=== PATIENT | male | born 1960 | race Caucasian/White ===

== ENCOUNTER 2019-06-01 15:14 | Emergency (ER) | payer SELFPAY ==
--- OUTSIDE RECORDS SUMMARY | 2019-06-01 15:31 | XMS REPORT | Clinical Summary ---
Author Author ANGELA Globaltmail USASaint Alphons[facility] - [facility] NampaTeam-Match [facility] CenterCDPMulti[facility] Address Unknown Phone Unavailable Care Team Providers Care Funds Development Director Name Role Phone PCP Unavailable Allergies No Known Allergies Medications End Date Status Medication Sig Dispensed Refills Start Date Active metoprolol (LOPRESSOR) 50 Take 50 mg by 0 MG tablet mouth 2 (two) times daily. Active sertraline (ZOLOFT) 25 MG Take 25 mg by 0 tablet mouth daily. 07/03/2018 Discontinued aspirin 81 MG EC tablet Take 81 mg by 0 mouth daily. 07/03/2018 Discontinued rosuvastatin (CRESTOR) 20 Take 20 mg by 0 MG tablet mouth nightly. 07/29/2018 Discontinued amiodarone (PACERONE) 200 Take 1 tablet 60 tablet 0 MG tablet (200 mg 8 total) by mouth 2 (two) times daily for 30 days. 07/10/2018 amoxicillin-clavulanate Take 1 tablet 14 tablet 0 (AUGMENTIN) 875-125 mg by mouth 8 per tablet every 12 (twelve) hours for 7 days. 08/02/2018 aspirin 325 MG tablet Take 1 tablet 30 tablet 0 (325 mg 8 total) by mouth daily for 30 days. 08/02/2018 atorvastatin (LIPITOR) 20 Take 1 tablet 30 tablet 0 MG tablet (20 mg total) 8 by mouth daily for 30 days. 08/02/2018 clopidogrel (PLAVIX) 75 Take 1 tablet 30 tablet 0 mg tablet (75 mg total) 8 by mouth daily for 30 days. 08/02/2018 gabapentin (NEURONTIN) Take 1 90 capsule 0 100 MG capsule capsule (100 8 mg total) by mouth 3 (three) times daily for 30 days. 07/08/2018 predniSONE (DELTASONE) 20 Take 2 10 tablet 0 MG tablet tablets (40 8 mg total) by mouth daily for 5 days. 08/02/2018 famotidine (PEPCID) 20 MG Take 1 tablet 60 tablet 0 tablet (20 mg total) 8 by mouth 2 (two) times daily for 30 days. Active Problems Problem Noted Date S/P CABG (coronary artery bypass graft) 06/24/2018 CAD (coronary artery disease), [place] coronary artery 06/24/2018 Encounters Care Team Description Date Type Specialty Tiffany Hanley, MARIAA 10/09/2018 Telephone Blanca Hong, RN 10/01/2018 Telephone Physical Therapy Blanca Hong, MARIAA 09/24/2018 Telephone Physical Therapy Blanca Hong, RN 09/23/2018 Telephone Physical Therapy Bernabe Maharaj MD Hansen, Kristine M, RN S/P CABG x 2 (Primary Dx) 09/22/2018 Office Visit Physical Therapy Bernabe Maharaj MD Hansen, Kristine M, RN S/P CABG x 2 (Primary Dx) 09/21/2018 Office Visit Physical Therapy Tiffany Hanley, MARIAA 09/17/2018 Telephone Blanca Hong, RN 09/15/2018 Telephone Physical Therapy Blanca Hong, RN 09/14/2018 Telephone Physical Therapy Blanca Hong, RN 09/10/2018 Telephone Physical Therapy Bernabe Maharaj MD Hansen, Kristine M, RN S/P CABG x 2 (Primary Dx) 09/08/2018 Office Visit Physical Therapy Bernabe Maharaj MD Hansen, Kristine M, RN S/P CABG x 2 (Primary Dx) 09/07/2018 Office Visit Physical Therapy Bernabe Maharaj MD Hansen, Kristine M, RN S/P CABG x 2 (Primary Dx) 08/31/2018 Office Visit Physical Therapy Bernabe Maharaj MD Hansen, Kristine M, RN S/P CABG x 2 (Primary Dx) 08/24/2018 Office Visit Physical Therapy Blanca Hong, RN 08/20/2018 Telephone Physical Therapy Bernabe Maharaj MD Burns, Caitlin M S/P CABG x 2 (Primary Dx) 08/18/2018 Office Visit Physical Therapy Bernabe Maharaj MD Hansen, Kristine M, RN S/P CABG x 2 (Primary Dx) 08/18/2018 Office Visit Physical Therapy Bernabe Maharaj MD Hansen, Kristine M, RN S/P CABG x 2 (Primary Dx) 08/17/2018 Office Visit Physical Therapy Bernabe Maharaj MD Hansen, Kristine M, RN S/P CABG x 2 (Primary Dx) 08/13/2018 Office Visit Physical Therapy Bernabe Maharaj MD Hansen, Kristine M, RN S/P CABG x 2 (Primary Dx) 08/11/2018 Office Visit Physical Therapy Bernabe Maharaj MD Hansen, Kristine M, RN S/P CABG x 2 (Primary Dx) 08/10/2018 Office Visit Physical Therapy Blanca Hong, MARIAA 08/06/2018 Telephone Physical Therapy Bernabe Maharaj MD Hansen, Kristine M, RN S/P CABG x 2 (Primary Dx) 08/04/2018 Office Visit Physical Therapy Bernabe Maharaj MD Hansen, Kristine M, RN S/P CABG x 2 (Primary Dx) 08/03/2018 Office Visit Physical Therapy Bernabe Maharaj MD Hansen, Kristine M, RN S/P CABG x 2 (Primary Dx) 07/30/2018 Office Visit Physical Therapy Bernabe Maharaj MD Jacobs, Emily S/P CABG x 2 (Primary Dx) 07/29/2018 Office Visit Physical Therapy Bernabe Maharaj MD Mikelonis, Nicole Rene, RN S/P CABG x 2 (Primary Dx) 07/29/2018 Office Visit Physical Therapy Jackson Brambila MD BYPASS,AORTO CORONARY RANDI/SVG 06/24/2018 Surgery Abel Mota MD 06/24/2018 Anesthesia Event Jackson Brambila MD Bajoyo, Aries Palmejar, MD Kasmai, Haniyeh, MD Ruiz, Heine, MD Coronary artery disease involving [place] coronary artery of [place] heart without angina pectoris; S/P CABG (coronary artery bypass graft); Paroxysmal A-fib (HCC); Shortness of breath; Stridor 06/24/2018 [facility] General Internal Medicine - Encounter 07/03/2018 Jackson Brambila MD 06/23/2018 Hospital Pre-Admission Testing Encounter 06/23/2018 Orders Only General Internal Medicine after 05/31/2018 Family History Medical History Relation Name Comments No Known Problem Brother No Known Problem Father No Known Problem Mother No Known Problem Sister Relation Name Status Comments Brother Father Mother Sister Social History Date Tobacco Use Types Packs/Day Years Used Never Smoker Smokeless Tobacco: Never Used Alcohol Use Drinks/Week oz/Week Comments Yes 1 Glasses of 0.6 wine Sex Assigned at Date Recorded Not on file Industry Job Start Date Occupation Not on file Not on file Not on file Travel End Travel History Travel Start No recent travel history available. Last Filed Vital Signs Time Taken Vital Sign Reading 07/29/2018 11:02 AM CDT Blood Pressure 90/56 07/29/2018 11:02 AM CDT Pulse 75 07/03/2018 7:08 AM CDT Temperature 36.6 C (97.9 F) 07/03/2018 7:59 AM CDT Respiratory Rate 19 07/29/2018 11:02 AM CDT Oxygen Saturation 96% 07/01/2018 11:42 PM CDT Inhaled Oxygen 35% Concentration 07/29/2018 11:02 AM CDT Weight 91.2 kg (201 lb) 07/29/2018 11:02 AM CDT Height 170.2 cm (5' 7") 07/29/2018 11:02 AM CDT Body Mass Index 31.48 Plan of Treatment Health Maintenance Due Date Last Done Comments INFLUENZA VACCINE 07/06/2018 Implants Device Identifier Shelf Expiration Date Model / Serial / Lot Implanted Type Area Manufactur er 10/05/20202 / / [id number] Spng Surgcel 2x4in Lf Strl 1961 - Cement/Eren N/A: Chest BIOMET:TRA [id number] ler/Adhesi GABBY Implanted: Qty: 1 on 06/24/2018 by Jackson Oconnell MD 06/05/2019 [id number] / / [id number] Pericard Closure 4ply 7x15cm Tissue CORMATRIX [id number] - [id number] Graft/Subs CARDIOVASC Implanted: Qty: 1 on 06/24/2018 by Jackson Deng MD Procedures Comments Procedure Name Priority Date/Time Associated Diagnosis RHYTHM STRIP - SCAN 07/04/2018 4:32 PM CDT RHYTHM STRIP - SCAN 07/04/2018 4:31 PM CDT MAGNESIUM Routine 07/03/2018 4:[address] CHEST WITHOUT IV YARI 07/02/2018 CONTRAST 5:45 PM CDT PERIPHERAL VASCULAR 07/02/2018 REPORT - SCAN 8:42 AM CDT MAGNESIUM Routine 07/02/2018 5:48 AM CDT MAGNESIUM Routine 07/01/2018 4:[address] SOFT TISSUE NECK WITH YARI 06/30/2018 IV CONTRAST 5:45 PM CDT VENOUS DOPPLER ARM, LEFT Routine 06/30/2018 3:35 PM CDT MAGNESIUM Routine 06/30/2018 5:20 AM CDT BASIC METABOLIC PANEL (7) Routine 06/30/2018 5:20 AM CDT XR CHEST 1 VIEW Routine 06/29/2018 PORTABLE/BEDSIDE 5:00 AM CDT POCT-GLUCOSE METER Routine 06/29/2018 2:56 AM CDT POCT-GLUCOSE METER Routine 06/28/2018 8:43 PM CDT POCT-GLUCOSE METER Routine 06/28/2018 4:14 PM CDT BLOOD GAS, ARTERIAL Routine 06/28/2018 3:06 PM CDT XR CHEST 1 VIEW Routine 06/28/2018 PORTABLE/BEDSIDE 3:00 PM CDT POCT-GLUCOSE METER Routine 06/28/2018 2:54 PM CDT POCT-GLUCOSE METER Routine 06/28/2018 11:31 AM CDT POCT-GLUCOSE METER Routine 06/28/2018 5:03 AM CDT CBC W/PLT COUNT & AUTO Routine 06/28/2018 DIFFERENTIAL 3:26 AM CDT COMPREHENSIVE METABOLIC Routine 06/28/2018 PANEL 3:26 AM CDT CBC W/PLT COUNT & AUTO Routine 06/28/2018 DIFFERENTIAL 3:26 AM CDT MAGNESIUM Routine 06/28/2018 3:00 AM CDT POCT-GLUCOSE METER Routine 06/27/2018 8:35 PM CDT POCT-GLUCOSE METER Routine 06/27/2018 4:06 PM CDT POCT-GLUCOSE METER Routine 06/27/2018 10:58 AM CDT ECG 12-LEAD Routine 06/27/2018 9:37 AM CDT Procedure Note - Interface, External Ris In - 06/27/2018 9:44 AM CDT Ventricula r Rate 144 BPM Atrial Rate 141 BPM QRS Duration 88 ms Q-T Interval 318 ms QTC Calculatio n(Bazett) 492 ms R Webb 11 degrees T Webb 29 degrees Atrial fibrillati on with rapid ventricula r response Nonspecifi c ST and T wave abnormalit y , probably digitalis effect Abnormal ECG When compared with ECG of 8 17:41, PREVIOUS ECG IS PRESENT ECG 12-LEAD Routine 06/27/2018 9:37 AM CDT POCT-GLUCOSE METER Routine 06/27/2018 3:48 AM CDT POCT-GLUCOSE METER Routine 06/26/2018 7:47 PM CDT ECG 12-LEAD Routine 06/26/2018 5:41 PM CDT Procedure Note - Interface, External Ris In - 06/26/2018 5:48 PM CDT Ventricula r Rate 100 BPM Atrial Rate 100 BPM P-R Interval 126 ms QRS Duration 90 ms Q-T Interval 344 ms QTC Calculatio n(Bazett) 443 ms P Webb 77 degrees R Webb 25 degrees T Webb 25 degrees Normal sinus rhythm ST elevation consider inferolate ral injury or acute infarct * ACUTE VT Abnormal ECG When compared with ECG of 8 15:13, PREVIOUS ECG IS PRESENT POCT-GLUCOSE METER Routine 06/26/2018 4:00 PM CDT CBC W/PLT COUNT & AUTO Routine 06/26/2018 DIFFERENTIAL 4:24 AM CDT BLOOD GAS, ARTERIAL Routine 06/26/2018 4:24 AM CDT CALCIUM, IONIZED Routine 06/26/2018 4:24 AM CDT MAGNESIUM Routine 06/26/2018 4:24 AM CDT BASIC METABOLIC PANEL (7) Routine 06/26/2018 4:24 AM CDT CBC W/PLT COUNT & AUTO Routine 06/26/2018 DIFFERENTIAL 4:24 AM CDT XR CHEST 1 VIEW Routine 06/26/2018 PORTABLE/BEDSIDE 2:36 AM CDT POCT-GLUCOSE METER Routine 06/26/2018 12:08 AM CDT POCT-GLUCOSE METER Routine 06/25/2018 8:24 PM CDT POCT-GLUCOSE METER Routine 06/25/2018 6:26 PM CDT TRANSFUSION SERVICE 06/25/2018 REPORT - SCAN 5:56 PM CDT BLOOD GAS, ARTERIAL Routine 06/25/2018 5:55 PM CDT BLOOD GAS, ARTERIAL Routine 06/25/2018 12:35 PM CDT POCT-GLUCOSE METER Routine 06/25/2018 6:09 AM CDT CBC W/PLT COUNT & AUTO Routine 06/25/2018 DIFFERENTIAL 5:19 AM CDT MAGNESIUM Routine 06/25/2018 5:19 AM CDT CBC W/PLT COUNT & AUTO Routine 06/25/2018 DIFFERENTIAL 5:19 AM CDT BASIC METABOLIC PANEL (7) Routine 06/25/2018 5:19 AM CDT XR CHEST 1 VIEW Routine 06/25/2018 PORTABLE/BEDSIDE 2:31 AM CDT POCT-GLUCOSE METER Routine 06/25/2018 12:25 AM CDT BLOOD GAS, ARTERIAL YARI 06/24/2018 10:48 PM CDT POCT-GLUCOSE METER Routine 06/24/2018 8:36 PM CDT MAGNESIUM Add-On 06/24/2018 7:22 PM CDT BASIC METABOLIC PANEL (7) Add-On 06/24/2018 7:22 PM CDT POCT-GLUCOSE METER Routine 06/24/2018 6:52 PM CDT TRANSFUSION SERVICE 06/24/2018 REPORT - SCAN 5:57 PM CDT CBC W/PLT COUNT & AUTO Routine 06/24/2018 DIFFERENTIAL 5:13 PM CDT CALCIUM, IONIZED Routine 06/24/2018 5:13 PM CDT BLOOD GAS, ARTERIAL Routine 06/24/2018 5:13 PM CDT PT/APTT Routine 06/24/2018 5:13 PM CDT CBC W/PLT COUNT & AUTO Routine 06/24/2018 DIFFERENTIAL 5:13 PM CDT POCT-GLUCOSE METER Routine 06/24/2018 5:12 PM CDT PREPARE LEUKO-REDUCED RBC Routine 06/24/2018 4:18 PM CDT POCT-GLUCOSE METER Routine 06/24/2018 3:37 PM CDT XR CHEST 1 VIEW Routine 06/24/2018 PORTABLE/BEDSIDE 3:15 PM CDT ECG 12-LEAD Routine 06/24/2018 3:13 PM CDT Procedure Note - Interface, External Ris In - 06/24/2018 3:17 PM CDT Ventricula r Rate 69 BPM Atrial Rate 69 BPM P-R Interval 136 ms QRS Duration 128 ms Q-T Interval 438 ms QTC Calculatio n(Bazett) 469 ms P Webb 66 degrees R Webb 5 degrees T Webb 14 degrees Normal sinus rhythm Right bundle branch block Abnormal ECG When compared with ECG of 8 08:27, PREVIOUS ECG IS PRESENT ECG 12-LEAD STAT 06/24/2018 3:13 PM CDT CBC W/PLT COUNT & AUTO Routine 06/24/2018 DIFFERENTIAL 3:05 PM CDT CALCIUM, IONIZED Routine 06/24/2018 3:05 PM CDT PT/APTT Routine 06/24/2018 3:05 PM CDT PROTHROMBIN TIME/INR Routine 06/24/2018 3:05 PM CDT BLOOD GAS, ARTERIAL Routine 06/24/2018 3:05 PM CDT MAGNESIUM Routine 06/24/2018 3:05 PM CDT BASIC METABOLIC PANEL (7) Routine 06/24/2018 3:05 PM CDT CBC W/PLT COUNT & AUTO Routine 06/24/2018 DIFFERENTIAL 3:05 PM CDT SPUTUM CULTURE + GRAM Routine 06/24/2018 STAIN 3:05 PM CDT POCT-HEMOGLOBIN Routine 06/24/2018 2:47 PM CDT POCT-HEMATOCRIT Routine 06/24/2018 2:47 PM CDT POCT-CALCIUM IONIZED Routine 06/24/2018 2:47 PM CDT POCT-GLUCOSE Routine 06/24/2018 2:47 PM CDT POCT-POTASSIUM Routine 06/24/2018 2:47 PM CDT POCT-SODIUM Routine 06/24/2018 2:47 PM CDT POCT-BLOOD GASES, Routine 06/24/2018 ARTERIAL 2:47 PM CDT POCT-ACT Routine 06/24/2018 2:46 PM CDT POCT-HEMOGLOBIN Routine 06/24/2018 1:36 PM CDT POCT-HEMATOCRIT Routine 06/24/2018 1:36 PM CDT POCT-CALCIUM IONIZED Routine 06/24/2018 1:36 PM CDT POCT-GLUCOSE Routine 06/24/2018 1:36 PM CDT POCT-POTASSIUM Routine 06/24/2018 1:36 PM CDT POCT-SODIUM Routine 06/24/2018 1:36 PM CDT POCT-BLOOD GASES, Routine 06/24/2018 ARTERIAL 1:36 PM CDT POCT-ACT Routine 06/24/2018 1:35 PM CDT POCT-HEMOGLOBIN Routine 06/24/2018 12:59 PM CDT POCT-HEMATOCRIT Routine 06/24/2018 12:59 PM CDT POCT-CALCIUM IONIZED Routine 06/24/2018 12:59 PM CDT POCT-GLUCOSE Routine 06/24/2018 12:59 PM CDT POCT-POTASSIUM Routine 06/24/2018 12:59 PM CDT POCT-SODIUM Routine 06/24/2018 12:59 PM CDT POCT-BLOOD GASES, Routine 06/24/2018 ARTERIAL 12:59 PM CDT POCT-ACT Routine 06/24/2018 12:58 PM CDT POCT-ACT Routine 06/24/2018 12:30 PM CDT POCT-ACT Routine 06/24/2018 12:04 PM CDT POCT-HEMOGLOBIN Routine 06/24/2018 11:37 AM CDT POCT-HEMATOCRIT Routine 06/24/2018 11:37 AM CDT POCT-CALCIUM IONIZED Routine 06/24/2018 11:37 AM CDT POCT-GLUCOSE Routine 06/24/2018 11:37 AM CDT POCT-POTASSIUM Routine 06/24/2018 11:37 AM CDT POCT-SODIUM Routine 06/24/2018 11:37 AM CDT POCT-BLOOD GASES, Routine 06/24/2018 ARTERIAL 11:37 AM CDT POCT-ACT Routine 06/24/2018 11:36 AM CDT BYPASS,AORTO CORONARY 06/24/2018 Atherosclerosis of [place] RANDI/SVG 11:10 AM CDT coronary artery of [place] heart without angina pectoris Case Notes CABG Special Needs PERFUSION - NOTIFIED 06/19 LM CONFIRM#PL ATELET GEL - NOTIFIED 06/19 LM XR CHEST 2 VIEWS Routine 06/23/2018 8:39 AM CDT ECG 12-LEAD Routine 06/23/2018 8:27 AM CDT Procedure Note - Interface, External Ris In - 06/23/2018 8:14 AM CDT Ventricula r Rate 53 BPM Atrial Rate 53 BPM P-R Interval 136 ms QRS Duration 90 ms Q-T Interval 420 ms QTC Calculatio n(Bazett) 394 ms P Webb 48 degrees R Webb 31 degrees T Webb 38 degrees Sinus bradycardi a Otherwise normal ECG No previous ECGs available ECG 12-LEAD Routine 06/23/2018 8:27 AM CDT CBC W/PLT COUNT & AUTO Routine 06/23/2018 DIFFERENTIAL 8:06 AM CDT TYPE AND SCREEN, Routine 06/23/2018 AUTOMATED 8:06 AM CDT URINALYSIS W/ MICROSCOPIC Routine 06/23/2018 8:06 AM CDT HEMOGLOBIN A1C Routine 06/23/2018 8:06 AM CDT LIPID PANEL Routine 06/23/2018 8:06 AM CDT PT/APTT Routine 06/23/2018 8:06 AM CDT BASIC METABOLIC PANEL (7) Routine 06/23/2018 8:06 AM CDT CBC W/PLT COUNT & AUTO Routine 06/23/2018 DIFFERENTIAL 8:06 AM CDT after 05/31/2018 Results * RHYTHM STRIP - SCAN (07/04/2018 4:32 PM CDT) Only the most recent of 2 results within the time period is included. Narrative Performed At * Magnesium (07/03/2018 4:27 AM CDT) Only the most recent of 9 results within the time period is included. Magnesium 2.3 1.5 - 3.0 mg/dL [facility] Specimen Blood Performing Organization Address City/State/Zipcode Phone Number [facility] [id number] [place] [address] * CT chest without IV contrast (07/02/2018 5:45 PM CDT) Specimen Narrative Performed At FINAL REPORT [facility] HISTORY: stridor COMPARISON : None Technique : Multiple axial images of the chest were performed from the lung apices to the lung bases without the administration of IV contrast. Images were presented in both the lung and soft tissue windows. This exam was performed according to our departmental dose optimization program which includes automated exposure control, adjustment of the mA and/or kV according to patient size and/or use of iterative reconstructive technique. Comment: The thyroid gland is within normal limits. There is no hilar, mediastinal or axillary lymphadenopathy. The patient is status post sternotomy. There is some pneumomediastinum. Some postsurgical changes including some wire is seen in the pericardial region of unclear etiology/significance. There is some pericardial thickening. Some nonspecific material is seen in the proximal trachea at the neck region. Please refer to the neck CT for further information. The visualized portions of the liver, spleen, adrenal glands, pancreas, and kidneys are within normal limits. The osseous structures as well as the subcutaneous soft tissues are without any abnormalities. There are some scattered areas of some linear subsegmental atelectasis versus scarring in the lungs. There is a very small left-sided pleural effusion with some adjacent airspace disease that likely represents atelectasis. Impression: 1. Very small left-sided pleural effusion with some adjacent likely atelectasis. 2. Scattered areas of some linear subsegmental atelectasis versus scarring. 3. Pneumomediastinum. 4. Nonspecific material/density in the proximal trachea. Please refer to the neck CT for further information. Signed: Wang Kirkland MD Report Verified Date/Time:07/02/2018 17:59:40 Reading Location: [address] Body Reading Room Procedure Note Interface, External Ris In - 07/02/2018 6:01 PM CDT FINAL REPORT HISTORY: stridor COMPARISON : None Technique : Multiple axial images of the chest were performed from the lung apices to the lung bases without the administration of IV contrast. Images were presented in both the lung and soft tissue windows. This exam was performed according to our departmental dose optimization program which includes automated exposure control, adjustment of the mA and/or kV according to patient size and/or use of iterative reconstructive technique. Comment: The thyroid gland is within normal limits. There is no hilar, mediastinal or axillary lymphadenopathy. The patient is status post sternotomy. There is some pneumomediastinum. Some postsurgical changes including some wire is seen in the pericardial region of unclear etiology/significance. There is some pericardial thickening. Some nonspecific material is seen in the proximal trachea at the neck region. Please refer to the neck CT for further information. The visualized portions of the liver, spleen, adrenal glands, pancreas, and kidneys are within normal limits. The osseous structures as well as the subcutaneous soft tissues are without any abnormalities. There are some scattered areas of some linear subsegmental atelectasis versus scarring in the lungs. There is a very small left-sided pleural effusion with some adjacent airspace disease that likely represents atelectasis. Impression: 1. Very small left-sided pleural effusion with some adjacent likely atelectasis. 2. Scattered areas of some linear subsegmental atelectasis versus scarring. 3. Pneumomediastinum. 4. Nonspecific material/density in the proximal trachea. Please refer to the neck CT for further information. Signed: Wang Kirkland MD Report Verified Date/Time: 07/02/2018 17:59:40 Reading Location: [facility] B1 [id number] CT Body Reading Room Performing Organization Address City/State/Zipcode Phone Number [place] * PERIPHERAL VASCULAR REPORT - SCAN (07/02/2018 8:42 AM CDT) Narrative Performed At * CT neck soft tissue with IV contrast (06/30/2018 5:45 PM CDT) Specimen Narrative Performed At FINAL REPORT [place] CT neck with contrast 06/30/2018 6:02 PM CLINICAL HISTORY: Persistent Stridor TECHNIQUE: Axial contrast-enhanced CT images of the neck were obtained. Axially acquired data were reformatted in coronal and sagittal planes for further analysis. This examination was performed according to our departmental dose optimization program, which includes automated exposure control, adjustment of the mA and/or kV according to patient size, and/or use of iterated reconstruction technique. COMPARISON: None available FINDINGS: There is circumferential nonenhancing debris in the proximal trachea, extending from the midportion of the cricoid cartilage inferiorly to the level of the C7-T1 intervertebral disc space. There is a poorly delineated collection in the immediately adjacent posterolateral right paratracheal soft tissue at C7, potentially reflecting a diverticulum or consequence of prior instrumentation. There is no mass or abnormal enhancement in the remainder aerodigestive tract or surrounding soft tissue. There is no lymphadenopathy. There are no fluid collections. The salivary and thyroid glands are unremarkable. The visualized brain, orbits, and paranasal sinuses are without worrisome finding. There are mild degenerative changes in the cervical spine without high-grade foraminal or central canal stenosis. There are changes of median sternotomy. IMPRESSION: Incompletely characterized intraluminal and periluminal proximal tracheal lesion, for which direct visualization is recommended. Signed: Stevie Kathleen MD Report Verified Date/Time:06/30/2018 18:07:11 Reading Location: [facility] Radiology Reading Room Procedure Note Interface, External Ris In - 06/30/2018 6:09 PM CDT FINAL REPORT CT neck with contrast 06/30/2018 6:02 PM CLINICAL HISTORY: Persistent Stridor TECHNIQUE: Axial contrast-enhanced CT images of the neck were obtained. Axially acquired data were reformatted in coronal and sagittal planes for further analysis. This examination was performed according to our departmental dose optimization program, which includes automated exposure control, adjustment of the mA and/or kV according to patient size, and/or use of iterated reconstruction technique. COMPARISON: None available FINDINGS: There is circumferential nonenhancing debris in the proximal trachea, extending from the midportion of the cricoid cartilage inferiorly to the level of the C7-T1 intervertebral disc space. There is a poorly delineated collection in the immediately adjacent posterolateral right paratracheal soft tissue at C7, potentially reflecting a diverticulum or consequence of prior instrumentation. There is no mass or abnormal enhancement in the remainder aerodigestive tract or surrounding soft tissue. There is no lymphadenopathy. There are no fluid collections. The salivary and thyroid glands are unremarkable. The visualized brain, orbits, and paranasal sinuses are without worrisome finding. There are mild degenerative changes in the cervical spine without high-grade foraminal or central canal stenosis. There are changes of median sternotomy. IMPRESSION: Incompletely characterized intraluminal and periluminal proximal tracheal lesion, for which direct visualization is recommended. Signed: Stevie Kathleen MD Report Verified Date/Time: 06/30/2018 18:07:11 Reading Location: [facility] Radiology Reading Room Performing Organization Address City/State/Zipcode Phone Number [facility] * Venous doppler arm, left (06/30/2018 3:35 PM CDT) Specimen Narrative Performed At FINAL REPORT [place] Left upper extremity venous Doppler dated 06/30/2018 HISTORY: Left arm swelling COMPARISON: None. Findings: There is occlusive thrombus seen in the cephalic vein and distal basilic vein. The radial, ulnar, brachial, axillary, subclavian, and internal jugular veins are patent without filling defect. There is otherwise normal compressibility and augmentation in the veins of the left upper extremity. IMPRESSION: 1. No deep venous thrombosis. 2. Occlusive thrombus in the cephalic and basilic veins as above. Signed: Jose Darden MD Report Verified Date/Time:06/30/2018 15:49:03 Reading Location: [facility] Radiology Reading Room Procedure Note Interface, External Ris In - 06/30/2018 3:51 PM CDT FINAL REPORT Left upper extremity venous Doppler dated 06/30/2018 HISTORY: Left arm swelling COMPARISON: None. Findings: There is occlusive thrombus seen in the cephalic vein and distal basilic vein. The radial, ulnar, brachial, axillary, subclavian, and internal jugular veins are patent without filling defect. There is otherwise normal compressibility and augmentation in the veins of the left upper extremity. IMPRESSION: 1. No deep venous thrombosis. 2. Occlusive thrombus in the cephalic and basilic veins as above. Signed: Jose Darden MD Report Verified Date/Time: 06/30/2018 15:49:03 Reading Location: [facility] Radiology Reading Room Performing Organization Address City/State/Zipcode Phone Number [facility] * Basic Metabolic Panel (06/30/2018 5:20 AM CDT) Only the most recent of 6 results within the time period is included. Sodium 138 135 - 148 meq/L [facility] Potassium 3.6 3.5 - 5.5 meq/L [facility] Chloride 104 98 - 106 meq/L [facility] CO2 25 20 - 31 meq/L [facility] BUN 12 10 - 26 mg/dL [facility] Creatinine 0.73 0.50 - 1.20 mg/dL [facility] Glucose 87 70 - 110 mg/dL [facility] Calcium 8.8 8.5 - 10.5 mg/dL [facility] EGFR 110Comment: ESTIMATED GFR IS mL/min/1.73 sq m [facility] NOT ACCURATE CREATININE CLEARANCE IN PREDICTING GLOMERULAR FILTRATION RATE. ESTIMATED GFR IS NOT APPLICABLE FOR DIALYSIS PATIENTS. Specimen Blood Performing Organization Address City/State/Zipcode Phone Number [facility] [address] [place] [address] * XR chest 1 view portable / bedside (06/29/2018 5:00 AM CDT) Only the most recent of 5 results within the time period is included. Specimen Narrative Performed At FINAL REPORT [facility] RAD, CHEST, 1 VIEW, NON DEPT INDICATION: SOB COMPARISON: Prior day's exam FINDINGS: Portable frontal view of the chest. IMPRESSION: Support Lines: Multiple surgical drains are stable. Lungs and pleura: Basilar subsegmental atelectasis. No new consolidation. No pneumothorax. Heart and mediastinum: Stable contours. Stable surgical changes. Additional findings: None. Signed: JR Saunders Robert MD Report Verified Date/Time:06/29/2018 05:15:41 Reading Location: [address] Transitional Reading Room Procedure Note Interface, External Ris In - 06/29/2018 6:37 AM CDT FINAL REPORT RAD, CHEST, 1 VIEW, NON DEPT INDICATION: SOB COMPARISON: Prior day's exam FINDINGS: Portable frontal view of the chest. IMPRESSION: Support Lines: Multiple surgical drains are stable. Lungs and pleura: Basilar subsegmental atelectasis. No new consolidation. No pneumothorax. Heart and mediastinum: Stable contours. Stable surgical changes. Additional findings: None. Signed: JR Saunders Robert MD Report Verified Date/Time: 06/29/2018 05:15:41 Reading Location: [facility] Transitional Reading Room Performing Organization Address City/State/Zipcode Phone Number [facility] * POC-Glucose meter (06/29/2018 2:56 AM CDT) Only the most recent of 21 results within the time period is included. POC-Glucose Meter 111 (H)Comment: TESTED AT [facility] 70 - 110 mg/dL [facility] [address] [facility] [address] Specimen Blood Performing Organization Address City/State/Zipcode Phone Number [facility] [address] [place] [address] [facility] * Blood gas, arterial (06/28/2018 3:06 PM CDT) Only the most recent of 7 results within the time period is included. pH, Arterial 7.45 7.35 - 7.45 [facility] pCO2, Arterial 39 35 - 45 mmHg [facility] pO2, Arterial 147 (H) 80 - 90 mmHg [facility] O2 Sat, Arterial 99.0 (H) 96.0 - 97.0 % [facility] HCO3, Arterial 26 21 - 29 mmol/L [facility] Base Excess, Arterial 2.1 -2.0 - 3.0 mmol/L [facility] Patient Temperature 37.0 C [facility] FIO2 40.0 % [facility] Specimen Blood, Arterial Performing Organization Address City/[facility]/Zipcode Phone Number [facility] [address] [place] [address] * CBC with platelet count + automated diff (06/28/2018 3:26 AM CDT) Only the most recent of 6 results within the time period is included. WBC 9.4 4.0 - 10.0 K/L [facility] RBC 3.08 (L) 4.20 - 5.80 M/L [facility] Hemoglobin 9.5 (L) 13.0 - 16.8 GM/DL [facility] Hematocrit 29.0 (L) 36.0 - 50.0 % [facility] MCV 94.2 82.0 - 99.0 fL [facility] MCH 30.8 27.0 - 33.0 pg [facility] MCHC 32.8 32.0 - 36.0 GM/DL [facility] RDW 13.2 12.0 - 15.0 % [facility] Platelets 168 150 - 430 K/CU MM [facility] MPV 10.8Comment: MPV-Approximately 6.0 - 11.5 fL [facility] 20% positive bias due to method change. nRBC 0 0 - 0 /100 WBC [facility] % Neutros 74 % [facility] % Lymphs 15 % [facility] % Monos 10 % [facility] % Eos 0 % [facility] % Baso 0 % [facility] # Neutros 6.93 1.80 - 8.00 K/L [facility] # Lymphs 1.44 (L) 1.48 - 4.50 K/L [facility] # Monos 0.91 0.00 - 1.30 K/L [facility] # Eos 0.03 0.00 - 0.50 K/L [facility] # Baso 0.04 0.00 - 0.20 K/L [facility] Immature 1 (H) 0 - 0 % [facility] Granulocytes-Relative Specimen Blood Performing Organization Address [facility] Phone Number [facility] [address] [place] [address] * Comprehensive metabolic panel (06/28/2018 3:26 AM CDT) Protein, Total 6.0 6.0 - 8.5 gm/dL [facility] Albumin 3.5 3.5 - 5.0 g/dL [facility] Alkaline Phosphatase 57 30 - 115 U/L [facility] Total Bilirubin 1.0 0.1 - 1.3 mg/dL [facility] Sodium 135 135 - 148 meq/L [facility] Potassium 4.4 3.5 - 5.5 meq/L [facility] Chloride 104 98 - 106 meq/L [facility] CO2 21 20 - 31 meq/L [facility] BUN 19 10 - 26 mg/dL [facility] Creatinine 0.80 0.50 - 1.20 mg/dL [facility] Glucose 122 (H) 70 - 110 mg/dL [facility] Calcium 8.8 8.5 - 10.5 mg/dL [facility] AST 197 (H) 5 - 40 U/L [facility] ALT 203 (H) 6 - 50 U/L [facility] EGFR 99Comment: ESTIMATED GFR IS mL/min/1.73 sq m [facility] NOT ACCURATE CREATININE CLEARANCE IN PREDICTING GLOMERULAR FILTRATION RATE. ESTIMATED GFR IS NOT APPLICABLE FOR DIALYSIS PATIENTS. Specimen Blood Performing Organization Address [facility] Phone Number [facility] [address] [place] [address] * ECG 12 lead (06/27/2018 9:37 AM CDT) Only the most recent of 3 results within the time period is included. Specimen Narrative Performed At Ventricular Rate 144 BPM GE MUSE Atrial Rate 141 BPM QRS Duration 88 ms Q-T Interval 318 ms QTC Calculation(Bazett) 492 ms R Webb 11 degrees T Webb 29 degrees Atrial fibrillation with rapid ventricular response Nonspecific ST and T wave abnormality , probably digitalis effect Abnormal ECG When compared with ECG of 26-JUN-2018 17:41, PREVIOUS ECG IS PRESENT Procedure Note Interface, External Ris In - 06/29/2018 3:12 PM CDT Ventricular Rate 144 BPM Atrial Rate 141 BPM QRS Duration 88 ms Q-T Interval 318 ms QTC Calculation(Bazett) 492 ms R Webb 11 degrees T Webb 29 degrees Atrial fibrillation with rapid ventricular response Nonspecific ST and T wave abnormality , probably digitalis effect Abnormal ECG When compared with ECG of 26-JUN-2018 17:41, PREVIOUS ECG IS PRESENT Performing Organization Address City/State/[facility] Phone Number [employer] [facility] * Calcium, Ionized (06/26/2018 4:24 AM CDT) Only the most recent of 3 results within the time period is included. Calcium, Ion 1.01 (L) 1.12 - 1.27 mmol/L [facility] pH, Blood 7.40 [facility] Specimen Blood Performing Organization Address City/[facility]/Zipcode Phone Number [facility] [address] [place] [address] * TRANSFUSION SERVICE REPORT - SCAN (06/25/2018 5:56 PM CDT) Only the most recent of 2 results within the time period is included. Narrative Performed At * PT/aPTT (06/24/2018 5:13 PM CDT) Only the most recent of 3 results within the time period is included. Protime 18.4 (H) 11.8 - 14.4 seconds [facility] INR 1.5 1.2 - 1.5 [facility] PTT 26.3 23.2 - 36.1 seconds [facility] Specimen Blood Narrative Performed At RECOMMENDED COUMADIN/WARFARIN INR THERAPY RANGES [facility] STANDARD DOSE: 2.0 - 3.0 Includes: PROPHYLAXIS for venous thrombosis, systemic embolization; TREATMENT for venous thrombosis and/or pulmonary embolus. HIGH RISK: Target INR is 2.5-3.5 for patients with mechanical heart valves. Performing Organization Address [facility] Hospital[facility] Phone Number [facility] [address] [place] [address] * Prepare Leuko-Red RBC (06/24/2018 4:18 PM CDT) CROSSMATCH COMPATIBLE SAFETRACE TX Unit ABO A Neg [facility]ET[facility] TX UNIT NUMBER [id number] [facility] TX Status RETURNED FROM ISSUE [facility]ET[facility] TX Blood Bank Product RED BLOOD CELLS [facility] TX PRODUCT CODE [id number] SAFETRACE TX CROSSMATCH COMPATIBLE SAFETRACE TX Unit ABO A Neg SAFETRACE TX UNIT NUMBER [id number] SAFETRACE TX Status RETURNED FROM ISSUE SAFETRACE TX Blood Bank Product RED BLOOD CELLS SAFETRACE TX PRODUCT CODE [id number] SAFETRACE TX CROSSMATCH COMPATIBLE SAFETRACE TX Unit ABO A Neg SAFETRACE TX UNIT NUMBER [id number] SAFETRACE TX Status RETURNED FROM ISSUE SAFETRACE TX Blood Bank Product RED BLOOD CELLS SAFETRACE TX PRODUCT CODE [id number] SAFETRACE TX CROSSMATCH COMPATIBLE SAFETRACE TX Unit ABO A Neg SAFETRACE TX UNIT NUMBER [id number] SAFETRACE TX Status RETURNED FROM ISSUE SAFETRACE TX Blood Bank Product RED BLOOD CELLS SAFETRACE TX PRODUCT CODE [id number] [facility] [place] Specimen Other Performing Organization Address [facility] Phone Number [place] * Sputum Culture + Gram Stain (06/24/2018 3:05 PM CDT) Result 1+ Normal respiratory ingrid [facility] present Gram Stain Result 2+ White blood cells seen [facility] Gram Stain Result 0-5 epithelial cells [facility] Gram Stain Result 1+ gram positive cocci [facility] Specimen Sputum Performing Organization Address [facility] Phone Number [facility] [address] [place] [address] * Prothrombin time/INR (06/24/2018 3:05 PM CDT) Protime 18.8 (H) 11.8 - 14.4 seconds [facility] INR 1.6 (H) 1.2 - 1.5 [facility] Specimen Blood Narrative Performed At RECOMMENDED COUMADIN/WARFARIN INR THERAPY RANGES [facility] STANDARD DOSE: 2.0 - 3.0 Includes: PROPHYLAXIS for venous thrombosis, systemic embolization; TREATMENT for venous thrombosis and/or pulmonary embolus. HIGH RISK: Target INR is 2.5-3.5 for patients with mechanical heart valves. Performing Organization Address City/State/Zipcode Phone Number [facility] [address] [place] [address] * POCT-HEMATOCRIT (06/24/2018 2:47 PM CDT) Only the most recent of 4 results within the time period is included. POC-Hematocrit 32 (L)Comment: TESTED AT [facility] 40 - 50 % [facility] [id number] [place] [address] Specimen Blood Performing Organization Address [facility] Hospital[facility] [address] [facility] * POCT-HEMOGLOBIN (06/24/2018 2:47 PM CDT) Only the most recent of 4 results within the time period is included. POC-Hemoglobin 10.9 (L)Comment: TESTED AT 13.0 - 16.8 g/dL [facility] [address] [facility] [address] [address] [facility] [address] Specimen Blood Performing Organization Address [facility] Hospital[facility] [address] [facility] * POCT-GLUCOSE (06/24/2018 2:47 PM CDT) Only the most recent of 4 results within the time period is included. POC-Glucose 152 (H)Comment: TESTED AT [facility] 70 - 110 mg/dL [address] [address] Specimen Blood Performing Organization Address [facility] Hospital[facility] Phone Number [address] [address] [facility] * POC-Sodium (06/24/2018 2:47 PM CDT) Only the most recent of 4 results within the time period is included. POC-Sodium 141Comment: TESTED AT [facility] 135 - 148 meq/L [facility] [id number] [place] [address] Specimen Blood Performing Organization Address [facility] [place] [phone] [place] [address] * POC-Potassium (06/24/2018 2:47 PM CDT) Only the most recent of 4 results within the time period is included. POC-Potassium 5.2Comment: TESTED AT [facility] 3.6 - 5.5 meq/L [facility] [id number] [place] [address] Specimen Blood Performing Organization Address [facility] Phone Number [address] * POC-Calcium ionized (06/24/2018 2:47 PM CDT) Only the most recent of 4 results within the time period is included. POC-Calcium Ionized 1.08 (L)Comment: TESTED AT 1.12 - 1.27 mmol/L [facility] [id number] [place] [address] Specimen Blood Performing Organization Address [facility] [place] [address] [phone] * POC-Blood gases, arterial (06/24/2018 2:47 PM CDT) Only the most recent of 4 results within the time period is included. Temp. Celsius-POC 37.0 [facility] FIO2-POC Comment: TESTED AT [facility] [address] [facility] [address] pH, Arterial-POC 7.372 7.350 - 7.450 [facility] PCO2, Arterial-POC 41.4 35.0 - 45.0 mm Hg [facility] PO2, Arterial-POC 201.0 (H) 80.0 - 90.0 mm Hg [facility] SO2, Arterial-POC 100.0 (H) 96.0 - 97.0 % [facility] HCO3, Arterilal-POC 24.0 21.0 - 29.0 meq/L [facility] BE, Arterial-POC -1.0 -2.0 - 3.0 meq/L [facility] Specimen Blood Performing Organization Address City/[facility] Phone Number [facility] [address] [place] [id number] [place] [address] [phone] * POC ACTIVATED CLOTTING TIME (06/24/2018 2:46 PM CDT) Only the most recent of 6 results within the time period is included. Activated Clotting Time 120Comment: TESTED AT [facility] sec [facility] [address] [facility] [address] Specimen Blood Performing Organization Address City/[facility] Phone Number [facility] [address] [place] [address] [phone] * XR chest 2 views (06/23/2018 8:39 AM CDT) Specimen Narrative Performed At FINAL REPORT [facility] Chest, PA and lateral. History: Coronary artery disease. Comparison: None available. Discussion:The cardiomediastinal silhouette and pulmonary vasculature are within normal limits. The lungs are clear without evidence of consolidation or effusion.There are no acute osseous abnormalities. The soft tissues are unremarkable. IMPRESSION: No acute cardiopulmonary abnormality. Signed: Brit Vasquez MD Report Verified Date/Time:06/23/2018 08:41:14 Reading Location: [address] Radiology Reading Room Procedure Note Interface, External Ris In - 06/23/2018 9:48 AM CDT FINAL REPORT Chest, PA and lateral. History: Coronary artery disease. Comparison: None available. Discussion: The cardiomediastinal silhouette and pulmonary vasculature are within normal limits. The lungs are clear without evidence of consolidation or effusion. There are no acute osseous abnormalities. The soft tissues are unremarkable. IMPRESSION: No acute cardiopulmonary abnormality. Signed: Brit Vasquez MD Report Verified Date/Time: 06/23/2018 08:41:14 Reading Location: [address] Radiology Reading Room Performing Organization Address City/State/Zipcode Phone Number [facility] * Type and screen, automated (06/23/2018 8:06 AM CDT) ABO/RH AUTOMATED (BEAKER) Comment: This is a corrected [facility] result. Previous result was A [facility] Neg on 06/23/2018 at 1003 CDT Ab Scrn Comment: This is a corrected [facility] result. Previous result was [facility] NEGATIVE on 06/23/2018 at 1003 CDT ABORh A NEGATIVE [facility] Antibody Screen NEGATIVE [facility] Specimen Blood Performing Organization Address City/[facility] Phone Number [facility] [address] [place] [address] HOSPITAL * Urinalysis w/Microscopic (06/23/2018 8:06 AM CDT) Color, UA Yellow [facility] Clarity, UA Clear [facility] Specific [place], UA 1.023Comment: Specific gravity 1.001 - 1.035 [facility] by refractometer. pH, UA 5.5 5.0 - 8.0 [facility] Protein, UA Negative Negative [facility] Glucose, UA Negative Negative [facility] Ketones, UA Negative Negative [facility] Bilirubin, UA Negative Negative [facility] Blood, UA Negative Negative [facility] Nitrite, UA Negative Negative [facility] Leukocytes, UA Negative Negative [facility] Urobilinogen, UA 0.2 0.2 - 1.0 mg/dL [facility] RBC, UA 1 /HPF [facility] WBC, UA 1 /HPF [facility] Bacteria, UA Few [facility] Mucus Few [facility] Squam Epithel, UA 1 /HPF [facility] Specimen Source [facility] Specimen Urine Performing Organization Address [facility] Phone Number [facility] [address] [place] [address] * Hemoglobin A1c (06/23/2018 8:06 AM CDT) Hemoglobin A1C 5.7 4.3 - 6.1 % [facility] Specimen Blood Performing Organization Address [facility] Phone Number [facility] [address] [place] [address] * Lipid panel (06/23/2018 8:06 AM CDT) Triglycerides 71 mg/dL [facility] Cholesterol 136 mg/dL [facility] HDL 61 mg/dL [facility] LDL Calculated 61 mg/dL [facility] Specimen Blood Narrative Performed At Triglyceride Reference Range: [facility] Low Risk <150 [id number] High Risk 200-499 Very High Risk>=500 Cholesterol Reference Range: Low Risk <200 [id number] High Risk>240 HDL Cholesterol Reference Range: Low Risk >=60 High Risk <40 LDL Cholesterol Reference Range: Optimal<100 Near [id number] Very High >=190 Performing Organization Address [facility] Phone Number [facility] [address] [place] [address] after 05/31/2018 Insurance Payer Benefit Subscriber ID Type Phone Address Plan / Group AETNA - MGD CARE AETNA HMO xxxxxxxxxx HMO/POS POS QPOS Advance Directives For more information, please contact: [place] [address] [place] [address] Date Inactivated Comments Code Status Date Activated 07/03/2018 11:54 AM Full Code 06/24/2018 2:59 PM This code status was determined by: Patient
--- OUTSIDE RECORDS SUMMARY | 2019-06-01 15:31 | XMS REPORT ---
Author Author [facility] Address Unknown Phone Unavailable Care Team Providers Care Call Center Operator Name Role Phone FARAZ SHOOK Unavailable Unavailable Problems This patient has no known problems. Allergies, Adverse Reactions, Alerts This patient has no known allergies or adverse reactions. Medications This patient has no known medications. Results Test Description Test Time Test Comments Text Results Atomic Results Result Comments MAGNESIUM 2018-07-03 04:57:00 MAGNESIUM (BEAKER) (test epix=598) 2.3 mg/dL 1.5-3.0 CT, CHEST, WITHOUT [id number] 17:59:00FINAL REPORT HISTORY: stridor COMPARISON : None Technique [...] mediastinal or axillary lymphadenopathy. The patient is stat us post sternotomy. There is some pneumomediastinum. Some postsurgical changes i ncluding some wire is seen in the pericardial region of unclear etiology/signifi cance. There is some pericardial thickening. Some nonspecific material is seen i n the proximal trachea at the neck region. Please refer to the neck CT for furth er information. The visualized portions of the liver, spleen, adrenal glands, pa ncreas, and kidneys are within normal limits. The osseous structures as well as the subcutaneous soft tissues are without any abnormalities. There are some scat tered areas of some linear subsegmental atelectasis versus scarring in the lungs . There is a very small left-sided pleural effusion with some adjacent airspace disease that likely represents atelectasis. Impression: 1. Very small left-sided pleural effusion with some adjacent likely atelectasis. 2. Scattered areas of s ome linear subsegmental atelectasis versus scarring. 3. Pneumomediastinum. 4. No nspecific material/density in the proximal trachea. Please refer to the neck CT for further information. Signed: Wang Kirkland MDReport Verified Date/Time: 06/07 17:59:40 Reading Location: [facility] C013Y CT Body Reading Room Electr onically signed by: WANG KIRKLAND M.D. on 07/02/2018 05:59 PM [id number] 06:14:00* Test Item Value Reference Range Comments MAGNESIUM (BEAKER) (test fodv=676) 2.4 mg/dL 1.5-3.0 Specimen slightly hemolyzed [id number] 04:55:00* Test Item Value Reference Range Comments MAGNESIUM (BEAKER) (test lmao=592) 2.1 mg/dL 1.5-3.0 CT, SOFT TISSUE NECK, [id number] 18:07:00FINAL REPORT CT neck with contrast 06/30/2018 6:02 [...] inferiorly to the level of the C7-T1 interv ertebral disc space. There is a poorly delineated collection in the immediately adjacent posterolateral right paratracheal soft tissue at C7, potentially reflec ting a diverticulum or consequence of prior instrumentation. There is no mass or abnormal enhancement in the remainder aerodigestive tract or surrounding soft t issue. There is no lymphadenopathy. There are no fluid collections. The salivary and thyroid glands are unremarkable. The visualized brain, orbits, and paranasal sinuses are without worrisome finding. There are mild degenerative changes in the cervical spine without high-grade foraminal or central canal stenosis. There are changes of median sternotomy. IMPRESSION: Incompletely characterized intral uminal and periluminal proximal tracheal lesion, for which direct visualization is recommended. Signed: Stevie Zurita Verified Date/Time: 06/30/2018 18:07:11 Reading Location: [facility] Radiology Reading Room Electronical ly signed by: STEVIE ZURITA M.D. on 06/30/2018 06:07 PM VENOUS DOPPLER ARM, [id number] 15:49:00Reason for exam:->left arm swelling, r/o DVTFINAL REPORT Left upper extremity venous Doppler dated 06/30/2018 HISTORY: Left arm swelling COMPARISON: None. Findings: There is occlusive thrombus seen in the cephalic vein and distal basilic vein. The radial, ulnar, brachial, axillary, subclavian, and internal jugular veins are patent without filling defect. There is otherwise normal compressibility and augmentation in th e veins of the left upper extremity. IMPRESSION: 1. No deep venous thrombosis.2. Occlusive thrombus in the cephalic and basilic veins as above. Signed: Jose Dardeneport Verified Date/Time: 06/30/2018 15:49:03 Reading Location: [facility] Radiology Reading Room [id number] 07:20:00* Test Item Value Reference Range Comments MAGNESIUM (BEAKER) (test fxbr=273) 2.0 mg/dL 1.5-3.0 BASIC METABOLIC [id number] 05:52:00* Test Item Value Reference Range Comments SODIUM (BEAKER) (test ioay=888) 138 meq/L 135-148 POTASSIUM (BEAKER) (test vyuf=557) 3.6 meq/L 3.5-5.5 CHLORIDE (BEAKER) (test quwh=193) 104 meq/L 98-106 CO2 (BEAKER) (test etpa=604) 25 meq/L 20-31 BLOOD UREA NITROGEN (BEAKER) (test xcif=885) 12 mg/dL 10-26 CREATININE (BEAKER) (test vgmq=648) 0.73 mg/dL 0.50-1.20 GLUCOSE RANDOM (BEAKER) (test ispo=716) 87 mg/dL 70-110 CALCIUM (BEAKER) (test tvso=935) 8.8 mg/dL 8.5-10.5 EGFR (BEAKER) (test auly=2684) 110 mL/min/1.73 sq m ESTIMATED GFR IS NOT ACCURATE CREATININE CLEARANCE IN PREDICTING GLOMERULAR FILTRATION RATE. ESTIMATED GFR IS NOT APPLICABLE FOR DIALYSIS PATIENTS. RAD, CHEST, 1 VIEW, NON [id number] 05:15:00Reason for exam:->SOBFINAL REPORT RAD, CHEST, 1 VIEW, NON DEPT INDICATION: SOB COMPARISON: Prior day's exam FINDINGS: Portable frontal view of the chest. IMPRESSION: Support Lines: Multiple surgical drains are stable. Lungs and pleura: Basilar subsegmental atelectasis. No new consolidation. No pneumothorax.Heart and mediastinum: Stable contours. Stable surgical changes.Additional findings: None. Signed: JR Saunders Robert MDReport Verified Date/Time: 06/29/2018 05 :15:41 Reading Location: [address] Reading Room [facility] signed by: DIANNE SAUNDERS on 06/29/2018 05:15 AM POCT-GLUCOSE METER 2018-06-29 03:08:00* Test Item Value Reference Range Comments POC-GLUCOSE METER (VICTORINAAKER) (test ezsb=3032) 111 mg/dL 70-110 TESTED AT [facility] [address] [facility] [address] POCT-GLUCOSE [id number] 21:20:00* Test Item Value Reference Range Comments POC-GLUCOSE METER (BARB) (test bcno=5328) 158 mg/dL 70-110 TESTED AT [facility] [address] [facility] [address] POCT-GLUCOSE [id number] 16:29:00* Test Item Value Reference Range Comments POC-GLUCOSE METER (BEAKER) (test lxur=1879) 135 mg/dL 70-110 TESTED AT [facility] [address] [facility] [address] RAD, CHEST, 1 VIEW, NON [id number] 16:16:00Reason for exam:->dyspneaShould this be performed at the bedside?->YesFINAL REPORT CHEST ONE VIEW HISTORY: Dyspnea COMPARISON: 06/26/2018 FINDINGS: Single portable AP examination of the chest was performed. Chest tubes remain in place. No pneumothorax is identified. Subsegmental atelectasis at the left lung base is unchanged in appearance. Slight interval increase in atelectatic changes at the right cardiophrenic angle. No pleural effusions or pneumothorax are identified. The cardiac shadow is mildly enlarged, unchanged. Sternotomy wires are present. Since the prior study, the right jugular catheter was removed. Signed: Karin Cosme MDReport Verified Date/Time: 06/28/2018 16:16:21 Reading Location: [address] Transitional Reading Room D GAS, [id number] 15:16:00* Test Item Value Reference Range Comments PH ARTERIAL (BEAKER) (test gizd=537) 7.45 7.35-7.45 PCO2 ARTERIAL (BEAKER) (test bnnj=889) 39 mmHg 35-45 PO2 ARTERIAL (BEAKER) (test yrpv=449) 147 mmHg 80-90 O2 SATURATION ARTERIAL (BEAKER) (test xwmr=816) 99.0 % 96.0-97.0 HCO3 ARTERIAL (BEAKER) (test lgnu=450) 26 mmol/L 21-29 BASE EXCESS ARTERIAL (BEAKER) (test rovl=681) 2.1 mmol/L -2.0-3.0 PATIENT TEMPERATURE (BEAKER) (test wjsw=0188) 37.0 C FIO2 (BEAKER) (test zqod=0066) 40.0 % POCT-GLUCOSE [id number] 14:55:00* Test Item Value Reference Range Comments POC-GLUCOSE METER (BEAKER) (test ydos=6739) 128 mg/dL 70-110 TESTED AT [facility] [address] [facility] [address] POCT-GLUCOSE [id number] 12:21:00* Test Item Value Reference Range Comments POC-GLUCOSE METER (BEAKER) (test xjyk=4673) 141 mg/dL 70-110 TESTED AT [facility] [address] [facility] [address] POCT-GLUCOSE [id number] 11:44:00* Test Item Value Reference Range Comments POC-GLUCOSE METER (BEAKER) (test egfi=4542) 114 mg/dL 70-110 TESTED AT [facility] [address] [facility] [address] [id number] 08:00:00* Test Item Value Reference Range Comments MAGNESIUM (BEAKER) (test hxub=594) 2.0 mg/dL 1.5-3.0 POCT-GLUCOSE [id number] 05:22:00* Test Item Value Reference Range Comments POC-GLUCOSE METER (BEAKER) (test fmsr=2801) 128 mg/dL 70-110 TESTED AT [facility] [address] [facility] [address] COMPREHENSIVE METABOLIC [id number] 04:27:00* Test Item Value Reference Range Comments TOTAL PROTEIN (BEAKER) (test ceij=517) 6.0 gm/dL 6.0-8.5 ALBUMIN (BEAKER) (test hjuw=1312) 3.5 g/dL 3.5-5.0 ALKALINE PHOSPHATASE (BEAKER) (test retl=274) 57 U/L 30-115 BILIRUBIN TOTAL (BEAKER) (test cwgl=626) 1.0 mg/dL 0.1-1.3 SODIUM (BEAKER) (test cykc=115) 135 meq/L 135-148 POTASSIUM (BEAKER) (test hiyj=084) 4.4 meq/L 3.5-5.5 CHLORIDE (BEAKER) (test bwnd=530) 104 meq/L 98-106 CO2 (BEAKER) (test iscq=528) 21 meq/L 20-31 BLOOD UREA NITROGEN (BEAKER) (test mdww=528) 19 mg/dL 10-26 CREATININE (BEAKER) (test bnfm=486) 0.80 mg/dL 0.50-1.20 GLUCOSE RANDOM (BEAKER) (test ggdv=996) 122 mg/dL 70-110 CALCIUM (BEAKER) (test tqgk=755) 8.8 mg/dL 8.5-10.5 AST (SGOT) (BEAKER) (test bqsa=659) 197 U/L 5-40 ALT (SGPT) (BEAKER) (test uiso=959) 203 U/L 6-50 EGFR (BEAKER) (test zkrg=8365) 99 mL/min/1.73 sq m ESTIMATED GFR IS NOT ACCURATE CREATININE CLEARANCE IN PREDICTING GLOMERULAR FILTRATION RATE. ESTIMATED GFR IS NOT APPLICABLE FOR DIALYSIS PATIENTS. CBC W/PLT COUNT & AUTO [id number] 04:04:00* Test Item Value Reference Range Comments WHITE BLOOD CELL COUNT (BEAKER) (test cyjw=218) 9.4 K/ L 4.0-10.0 RED BLOOD CELL COUNT (BEAKER) (test ddqd=078) 3.08 M/ L 4.20-5.80 HEMOGLOBIN (BEAKER) (test cgtp=781) 9.5 GM/DL 13.0-16.8 HEMATOCRIT (BEAKER) (test taru=444) 29.0 % 36.0-50.0 MEAN CORPUSCULAR VOLUME (BEAKER) (test hbow=452) 94.2 fL 82.0-99.0 MEAN CORPUSCULAR HEMOGLOBIN (BEAKER) (test lend=053) 30.8 pg 27.0-33.0 MEAN CORPUSCULAR HEMOGLOBIN CONC (BEAKER) (test ffnm=292) 32.8 GM/DL 32.0-36.0 RED CELL DISTRIBUTION WIDTH (BEAKER) (test hvhp=500) 13.2 % 12.0-15.0 PLATELET COUNT (BEAKER) (test dnfy=574) 168 K/CU MM 150-430 MEAN PLATELET VOLUME (BEAKER) (test voic=184) 10.8 fL 6.0-11.5 MPV-Approximately 20% positive bias due to method change. NUCLEATED RED BLOOD CELLS (BEAKER) (test hezb=892) 0 /100 WBC 0-0 NEUTROPHILS RELATIVE PERCENT (BEAKER) (test hjbo=330) 74 % LYMPHOCYTES RELATIVE PERCENT (BEAKER) (test zjny=703) 15 % MONOCYTES RELATIVE PERCENT (BEAKER) (test veql=245) 10 % EOSINOPHILS RELATIVE PERCENT (BEAKER) (test skzo=906) 0 % BASOPHILS RELATIVE PERCENT (BEAKER) (test bgea=952) 0 % NEUTROPHILS ABSOLUTE COUNT (BEAKER) (test xvnk=729) 6.93 K/ L 1.80-8.00 LYMPHOCYTES ABSOLUTE COUNT (BEAKER) (test xhwf=748) 1.44 K/ L 1.48-4.50 MONOCYTES ABSOLUTE COUNT (BEAKER) (test xcog=963) 0.91 K/ L 0.00-1.30 EOSINOPHILS ABSOLUTE COUNT (BEAKER) (test beon=686) 0.03 K/ L 0.00-0.50 BASOPHILS ABSOLUTE COUNT (BEAKER) (test bpfu=296) 0.04 K/ L 0.00-0.20 IMMATURE GRANULOCYTES-RELATIVE PERCENT (BEAKER) (test lckf=0508) 1 % 0-0 POCT-GLUCOSE [id number] 16:43:00* Test Item Value Reference Range Comments POC-GLUCOSE METER (BEAKER) (test mnku=9857) 116 mg/dL 70-110 TESTED AT [facility] [address] [facility] [address] POCT-GLUCOSE [id number] 11:01:00* Test Item Value Reference Range Comments POC-GLUCOSE METER (BEAKER) (test weop=4792) 161 mg/dL 70-110 TESTED AT [facility] [address] [place] [address] SPUTUM CULTURE + GRAM [id number] 09:43:00* Test Item Value Reference Range Comments CULTURE (BEAKER) (test fbop=9211) 1+ Normal respiratory ingrid present GRAM STAIN RESULT (BEAKER) (test bfmk=4787) 2+ White blood cells seen GRAM STAIN RESULT (BEAKER) (test hjwt=56137) 0-5 epithelial cells GRAM STAIN RESULT (BEAKER) (test qteh=00069) 1+ gram positive cocci POCT-GLUCOSE [id number] 04:03:00* Test Item Value Reference Range Comments POC-GLUCOSE METER (BEAKER) (test jlrh=0801) 92 mg/dL 70-110 TESTED AT [facility] [address] [facility] [address] POCT-GLUCOSE [id number] 20:01:00* Test Item Value Reference Range Comments POC-GLUCOSE METER (BEAKER) (test tgmi=3577) 138 mg/dL 70-110 TESTED AT [facility] [address] [facility] [address] POCT-GLUCOSE [id number] 17:00:00* Test Item Value Reference Range Comments POC-GLUCOSE METER (BEAKER) (test kzkw=6298) 156 mg/dL 70-110 TESTED AT [facility] [address] [place] [address] [id number] 04:57:00* Test Item Value Reference Range Comments MAGNESIUM (BEAKER) (test cozf=199) 1.9 mg/dL 1.5-3.0 BASIC METABOLIC [id number] 04:57:00* Test Item Value Reference Range Comments SODIUM (BEAKER) (test qonb=436) 137 meq/L 135-148 POTASSIUM (BEAKER) (test aozg=971) 3.9 meq/L 3.5-5.5 CHLORIDE (BEAKER) (test wfij=809) 107 meq/L 98-106 CO2 (BEAKER) (test sapq=760) 26 meq/L 20-31 BLOOD UREA NITROGEN (BEAKER) (test hgck=524) 12 mg/dL 10-26 CREATININE (BEAKER) (test zixg=972) 0.75 mg/dL 0.50-1.20 GLUCOSE RANDOM (BEAKER) (test mbvr=882) 129 mg/dL 70-110 CALCIUM (BEAKER) (test vrzc=494) 8.6 mg/dL 8.5-10.5 EGFR (BEAKER) (test zszu=8174) 107 mL/min/1.73 sq m ESTIMATED GFR IS NOT ACCURATE CREATININE CLEARANCE IN PREDICTING GLOMERULAR FILTRATION RATE. ESTIMATED GFR IS NOT APPLICABLE FOR DIALYSIS PATIENTS. CBC W/PLT COUNT & AUTO [id number] 04:37:00* Test Item Value Reference Range Comments WHITE BLOOD CELL COUNT (BEAKER) (test mweh=307) 8.8 K/ L 4.0-10.0 RED BLOOD CELL COUNT (BEAKER) (test tpfp=248) 3.05 M/ L 4.20-5.80 HEMOGLOBIN (BEAKER) (test wrai=965) 9.4 GM/DL 13.0-16.8 HEMATOCRIT (BEAKER) (test dyly=777) 28.4 % 36.0-50.0 MEAN CORPUSCULAR VOLUME (BEAKER) (test pnpo=262) 93.1 fL 82.0-99.0 MEAN CORPUSCULAR HEMOGLOBIN (BEAKER) (test dbxy=927) 30.8 pg 27.0-33.0 MEAN CORPUSCULAR HEMOGLOBIN CONC (BEAKER) (test bwex=404) 33.1 GM/DL 32.0-36.0 RED CELL DISTRIBUTION WIDTH (BEAKER) (test ydzi=383) 13.1 % 12.0-15.0 PLATELET COUNT (BEAKER) (test hbnc=934) 104 K/CU MM 150-430 MEAN PLATELET VOLUME (BEAKER) (test zrar=100) 10.0 fL 6.0-11.5 MPV-Approximately 20% positive bias due to method change. NUCLEATED RED BLOOD CELLS (BEAKER) (test arty=408) 0 /100 WBC 0-0 NEUTROPHILS RELATIVE PERCENT (BEAKER) (test wshw=889) 74 % LYMPHOCYTES RELATIVE PERCENT (BEAKER) (test wkbm=484) 16 % MONOCYTES RELATIVE PERCENT (BEAKER) (test exik=385) 10 % EOSINOPHILS RELATIVE PERCENT (BEAKER) (test vpvy=182) 0 % BASOPHILS RELATIVE PERCENT (BEAKER) (test cwfl=543) 0 % NEUTROPHILS ABSOLUTE COUNT (BEAKER) (test wbum=767) 6.56 K/ L 1.80-8.00 LYMPHOCYTES ABSOLUTE COUNT (BEAKER) (test ynof=596) 1.39 K/ L 1.48-4.50 MONOCYTES ABSOLUTE COUNT (BEAKER) (test brfd=732) 0.84 K/ L 0.00-1.30 EOSINOPHILS ABSOLUTE COUNT (BEAKER) (test tmuk=615) 0.01 K/ L 0.00-0.50 BASOPHILS ABSOLUTE COUNT (BEAKER) (test lytq=724) 0.01 K/ L 0.00-0.20 IMMATURE GRANULOCYTES-RELATIVE PERCENT (BEAKER) (test lyrn=5972) 0 % 0-0 CALCIUM, [id number] 04:32:00* Test Item Value Reference Range Comments CALCIUM IONIZED (BEAKER) (test wrxe=759) 1.01 mmol/L 1.12-1.27 PH, BLOOD (BEAKER) (test ecpx=8103) 7.40 BLOOD GAS, [id number] 04:30:00* Test Item Value Reference Range Comments PH ARTERIAL (BEAKER) (test lzuh=737) 7.40 7.35-7.45 PCO2 ARTERIAL (BEAKER) (test ynei=234) 42 mmHg 35-45 PO2 ARTERIAL (BEAKER) (test jkjo=863) 81 mmHg 80-90 O2 SATURATION ARTERIAL (BEAKER) (test fyky=020) 96.0 % 96.0-97.0 HCO3 ARTERIAL (BEAKER) (test fnkw=851) 25 mmol/L 21-29 BASE EXCESS ARTERIAL (BEAKER) (test gowg=508) 0.3 mmol/L -2.0-3.0 PATIENT TEMPERATURE (BEAKER) (test adxo=0697) 37.0 C FIO2 (BEAKER) (test wwuy=0639) 36.0 % RAD, CHEST, 1 VIEW, NON [id number] 03:21:00Reason for exam:->sobFINAL REPORT RAD, CHEST, 1 VIEW, NON DEPT INDICATION: sob COMPARISON: Prior day's exam FINDINGS: Portable frontal view of the chest. IMPRESSION: Support Lines: The endotracheal tube is been removed. Right IJ Lynndyl-Nitza catheter is now present. Surgical drains and right IJ central venous catheter are stable. Lungs and pleura: Low lung volumes. Basilar subsegmental atelectas is. No pneumothorax or effusion.Heart and mediastinum: Stable contours. Stable s urgical changes.Additional findings: None. Signed: JR Saunders Robert MDRe port Verified Date/Time: 06/26/2018 03:21:07 Reading Location: [facility] C013Y CT Body Reading Room Electronically signed by: DIANNE SAUNDERS on 018 03:21 AM POCT-GLUCOSE [id number] 00:23:00* Test Item Value Reference Range Comments POC-GLUCOSE METER (BEAKER) (test cydc=3356) 135 mg/dL 70-110 TESTED AT [facility] [id number] [place] [address] POCT-GLUCOSE [id number] 20:41:00* Test Item Value Reference Range Comments POC-GLUCOSE METER (BEAKER) (test jlen=9379) 180 mg/dL 70-110 TESTED AT [facility] [address] [facility] [address] POCT-GLUCOSE [id number] 18:27:00* Test Item Value Reference Range Comments POC-GLUCOSE METER (BEAKER) (test tnxz=4915) 195 mg/dL 70-110 TESTED AT [facility] [id number] [place] [address] BLOOD GAS, [id number] 18:01:00* Test Item Value Reference Range Comments PH ARTERIAL (BEAKER) (test icnw=970) 7.35 7.35-7.45 PCO2 ARTERIAL (BEAKER) (test wjih=556) 42 mmHg 35-45 PO2 ARTERIAL (BEAKER) (test afxp=552) 88 mmHg 80-90 O2 SATURATION ARTERIAL (BEAKER) (test ygrk=684) 96.3 % 96.0-97.0 HCO3 ARTERIAL (BEAKER) (test rzhx=098) 23 mmol/L 21-29 BASE EXCESS ARTERIAL (BEAKER) (test apyd=169) -2.5 mmol/L -2.0-3.0 PATIENT TEMPERATURE (BEAKER) (test mslo=7924) 37.0 C FIO2 (BEAKER) (test vemy=0300) 32.0 % BLOOD GAS, [id number] 12:42:00* Test Item Value Reference Range Comments PH ARTERIAL (BEAKER) (test wtwy=893) 7.26 7.35-7.45 PCO2 ARTERIAL (BEAKER) (test igpj=453) 48 mmHg 35-45 PO2 ARTERIAL (BEAKER) (test gbic=732) 79 mmHg 80-90 O2 SATURATION ARTERIAL (BEAKER) (test jehp=221) 93.8 % 96.0-97.0 HCO3 ARTERIAL (BEAKER) (test jyey=300) 21 mmol/L 21-29 BASE EXCESS ARTERIAL (BEAKER) (test omir=531) -5.8 mmol/L -2.0-3.0 PATIENT TEMPERATURE (BEAKER) (test nwwb=1916) 37.0 C FIO2 (BEAKER) (test wzdx=5017) 36.0 % POCT-GLUCOSE [id number] 06:19:00* Test Item Value Reference Range Comments POC-GLUCOSE METER (BEAKER) (test rywb=1510) 154 mg/dL 70-110 TESTED AT [facility] [id number] [place] [address] BASIC METABOLIC [id number] 05:58:00* Test Item Value Reference Range Comments SODIUM (BEAKER) (test dvba=512) 143 meq/L 135-148 POTASSIUM (BEAKER) (test zrsw=133) 4.9 meq/L 3.5-5.5 CHLORIDE (BEAKER) (test afuo=909) 115 meq/L 98-106 CO2 (BEAKER) (test qnzk=493) 19 meq/L 20-31 BLOOD UREA NITROGEN (BEAKER) (test autq=970) 13 mg/dL 10-26 CREATININE (BEAKER) (test ulli=717) 0.93 mg/dL 0.50-1.20 GLUCOSE RANDOM (BEAKER) (test yhum=568) 137 mg/dL 70-110 CALCIUM (BEAKER) (test mkrd=244) 8.7 mg/dL 8.5-10.5 EGFR (BEAKER) (test jcog=7470) 83 mL/min/1.73 sq m ESTIMATED GFR IS NOT ACCURATE CREATININE CLEARANCE IN PREDICTING GLOMERULAR FILTRATION RATE. ESTIMATED GFR IS NOT APPLICABLE FOR DIALYSIS PATIENTS. [id number] 05:56:00* Test Item Value Reference Range Comments MAGNESIUM (BEAKER) (test aznq=719) 1.9 mg/dL 1.5-3.0 CBC W/PLT COUNT & AUTO [id number] 05:35:00* Test Item Value Reference Range Comments WHITE BLOOD CELL COUNT (BEAKER) (test tpuk=787) 9.2 K/ L 4.0-10.0 RED BLOOD CELL COUNT (BEAKER) (test jlqo=842) 3.27 M/ L 4.20-5.80 HEMOGLOBIN (BEAKER) (test vnnm=734) 10.1 GM/DL 13.0-16.8 Discordant result compared to previous result. Clinical correlation required. HEMATOCRIT (BEAKER) (test dpfn=308) 30.9 % 36.0-50.0 MEAN CORPUSCULAR VOLUME (BEAKER) (test vwlw=361) 94.5 fL 82.0-99.0 MEAN CORPUSCULAR HEMOGLOBIN (BEAKER) (test twqx=768) 30.9 pg 27.0-33.0 MEAN CORPUSCULAR HEMOGLOBIN CONC (BEAKER) (test gsmu=438) 32.7 GM/DL 32.0-36.0 RED CELL DISTRIBUTION WIDTH (BEAKER) (test thtq=112) 13.2 % 12.0-15.0 PLATELET COUNT (BEAKER) (test zizg=180) 119 K/CU MM 150-430 MEAN PLATELET VOLUME (BEAKER) (test eocm=701) 10.2 fL 6.0-11.5 MPV-Approximately 20% positive bias due to method change. NUCLEATED RED BLOOD CELLS (BEAKER) (test ziwz=230) 0 /100 WBC 0-0 NEUTROPHILS RELATIVE PERCENT (BEAKER) (test khii=565) 75 % LYMPHOCYTES RELATIVE PERCENT (BEAKER) (test grvp=005) 14 % MONOCYTES RELATIVE PERCENT (BEAKER) (test oqzx=537) 11 % EOSINOPHILS RELATIVE PERCENT (BEAKER) (test dgjs=162) 0 % BASOPHILS RELATIVE PERCENT (BEAKER) (test xoat=052) 0 % NEUTROPHILS ABSOLUTE COUNT (BEAKER) (test lyvn=145) 6.90 K/ L 1.80-8.00 LYMPHOCYTES ABSOLUTE COUNT (BEAKER) (test uooa=398) 1.25 K/ L 1.48-4.50 MONOCYTES ABSOLUTE COUNT (BEAKER) (test psdb=495) 0.97 K/ L 0.00-1.30 EOSINOPHILS ABSOLUTE COUNT (BEAKER) (test ghjk=942) 0.01 K/ L 0.00-0.50 BASOPHILS ABSOLUTE COUNT (BEAKER) (test yfew=115) 0.03 K/ L 0.00-0.20 IMMATURE GRANULOCYTES-RELATIVE PERCENT (BEAKER) (test texk=8566) 1 % 0-0 RAD, CHEST, 1 VIEW, NON [id number] 02:48:00while patient is intubated or has chest tubes.Reason for exam:->check line and tube placementShould this be performed at the bedside?->YesFINAL REPORT CLINICAL INDICATION: Line and tube placement Comparison: 06/24/2018 The tip of an endotracheal tube is above the clavicles. Advancement of 2 cm may be in order. Please correlate. The cardiomediastinal contours are stable. The lung volumes remain low. Central pulmonary vascular prominence and bilateral parenchymal opacities are similar to previous. There is no pneumothorax. Support lines are otherwise stable. Signed: Felice Thompson MDReport Verified Date/Time: 06/25/2018 02:48:51 Reading Location: [address] Reading Room - GLUCOSE [id number] 00:32:00* Test Item Value Reference Range Comments POC-GLUCOSE METER (BEAKER) (test ntaz=2447) 141 mg/dL 70-110 TESTED AT [facility] [address] [facility] [address] BLOOD GAS, [id number] 22:52:00* Test Item Value Reference Range Comments PH ARTERIAL (BEAKER) (test adxb=591) 7.26 7.35-7.45 PCO2 ARTERIAL (BEAKER) (test lgyo=382) 45 mmHg 35-45 PO2 ARTERIAL (BEAKER) (test lzht=165) 119 mmHg 80-90 O2 SATURATION ARTERIAL (BEAKER) (test npgn=667) 97.5 % 96.0-97.0 HCO3 ARTERIAL (BEAKER) (test paek=746) 20 mmol/L 21-29 BASE EXCESS ARTERIAL (BEAKER) (test poow=777) -6.8 mmol/L -2.0-3.0 PATIENT TEMPERATURE (BEAKER) (test dpmr=7286) 38.0 C FIO2 (BEAKER) (test cxxb=2627) 40.0 % BASIC METABOLIC [id number] 21:27:00* Test Item Value Reference Range Comments SODIUM (BEAKER) (test lqcl=459) 142 meq/L 135-148 POTASSIUM (BEAKER) (test nhjb=543) 4.7 meq/L 3.5-5.5 CHLORIDE (BEAKER) (test vykv=390) 116 meq/L 98-106 CO2 (BEAKER) (test eknx=873) 19 meq/L 20-31 BLOOD UREA NITROGEN (BEAKER) (test ghrh=079) 16 mg/dL 10-26 CREATININE (BEAKER) (test xyfj=500) 0.88 mg/dL 0.50-1.20 GLUCOSE RANDOM (BEAKER) (test zuri=978) 148 mg/dL 70-110 CALCIUM (BEAKER) (test ijos=104) 8.7 mg/dL 8.5-10.5 EGFR (BEAKER) (test ohdg=3661) 89 mL/min/1.73 sq m ESTIMATED GFR IS NOT ACCURATE CREATININE CLEARANCE IN PREDICTING GLOMERULAR FILTRATION RATE. ESTIMATED GFR IS NOT APPLICABLE FOR DIALYSIS PATIENTS. [id number] 21:23:00* Test Item Value Reference Range Comments MAGNESIUM (BEAKER) (test chrv=906) 2.5 mg/dL 1.5-3.0 POCT-GLUCOSE [id number] 20:37:00* Test Item Value Reference Range Comments POC-GLUCOSE METER (BEAKER) (test czuk=4288) 132 mg/dL 70-110 TESTED AT [facility] [address] [facility] [address] POCT-GLUCOSE [id number] 18:53:00* Test Item Value Reference Range Comments POC-GLUCOSE METER (BEAKER) (test gqqz=4600) 128 mg/dL 70-110 TESTED AT [facility] [address] [facility] [address] CALCIUM, [id number] 17:43:00* Test Item Value Reference Range Comments CALCIUM IONIZED (BEAKER) (test fetk=802) 1.08 mmol/L 1.12-1.27 PH, BLOOD (BEAKER) (test cppp=9193) 7.29 [id number] 17:38:00* Test Item Value Reference Range Comments PROTIME (BEAKER) (test szxt=149) 18.4 seconds 11.8-14.4 INR (BEAKER) (test hjwm=111) 1.5 1.2-1.5 PARTIAL THROMBOPLASTIN TIME (BEAKER) (test itnd=381) 26.3 seconds 23.2-36.1 RECOMMENDED COUMADIN/WARFARIN INR THERAPY RANGESSTANDARD DOSE: 2.0 - 3.0 Inclu amanda: PROPHYLAXIS for venous thrombosis, systemic embolization; TREATMENT for zi ous thrombosis and/or pulmonary embolus.HIGH RISK: Target INR is 2.5-3.5 for pat ients with mechanical heart valves.CBC W/PLT COUNT & AUTO [id number] 17:36:00* Test Item Value Reference Range Comments WHITE BLOOD CELL COUNT (BEAKER) (test cxyy=432) 11.4 K/ L 4.0-10.0 RED BLOOD CELL COUNT (BEAKER) (test kiqx=663) 3.53 M/ L 4.20-5.80 HEMOGLOBIN (BEAKER) (test ffgw=599) 10.9 GM/DL 13.0-16.8 HEMATOCRIT (BEAKER) (test baup=741) 33.2 % 36.0-50.0 MEAN CORPUSCULAR VOLUME (BEAKER) (test hlsk=046) 94.1 fL 82.0-99.0 MEAN CORPUSCULAR HEMOGLOBIN (BEAKER) (test easw=568) 30.9 pg 27.0-33.0 MEAN CORPUSCULAR HEMOGLOBIN CONC (BEAKER) (test fxki=041) 32.8 GM/DL 32.0-36.0 RED CELL DISTRIBUTION WIDTH (BEAKER) (test bnuf=689) 12.8 % 12.0-15.0 PLATELET COUNT (BEAKER) (test jwdj=100) 144 K/CU MM 150-430 MEAN PLATELET VOLUME (BEAKER) (test bjpf=416) 10.2 fL 6.0-11.5 MPV-Approximately 20% positive bias due to method change. NUCLEATED RED BLOOD CELLS (BEAKER) (test dkne=562) 0 /100 WBC 0-0 NEUTROPHILS RELATIVE PERCENT (BEAKER) (test clxs=312) 62 % LYMPHOCYTES RELATIVE PERCENT (BEAKER) (test rvan=198) 28 % MONOCYTES RELATIVE PERCENT (BEAKER) (test jlti=202) 9 % EOSINOPHILS RELATIVE PERCENT (BEAKER) (test esxn=473) 1 % BASOPHILS RELATIVE PERCENT (BEAKER) (test ojgp=064) 0 % NEUTROPHILS ABSOLUTE COUNT (BEAKER) (test hqzp=228) 7.03 K/ L 1.80-8.00 LYMPHOCYTES ABSOLUTE COUNT (BEAKER) (test xddc=153) 3.20 K/ L 1.48-4.50 MONOCYTES ABSOLUTE COUNT (BEAKER) (test zyjf=815) 1.00 K/ L 0.00-1.30 EOSINOPHILS ABSOLUTE COUNT (BEAKER) (test kdkj=194) 0.06 K/ L 0.00-0.50 BASOPHILS ABSOLUTE COUNT (BEAKER) (test dbzy=327) 0.02 K/ L 0.00-0.20 IMMATURE GRANULOCYTES-RELATIVE PERCENT (BEAKER) (test xskv=3934) 0 % 0-0 BLOOD GAS, [id number] 17:29:00* Test Item Value Reference Range Comments PH ARTERIAL (BEAKER) (test intq=420) 7.27 7.35-7.45 PCO2 ARTERIAL (BEAKER) (test xxrv=299) 46 mmHg 35-45 PO2 ARTERIAL (BEAKER) (test oamz=158) 149 mmHg 80-90 O2 SATURATION ARTERIAL (BEAKER) (test dpli=831) 98.5 % 96.0-97.0 HCO3 ARTERIAL (BEAKER) (test ijok=994) 20 mmol/L 21-29 BASE EXCESS ARTERIAL (BEAKER) (test fdxg=919) -6.1 mmol/L -2.0-3.0 PATIENT TEMPERATURE (BEAKER) (test svgl=0423) 38.3 C FIO2 (BEAKER) (test xwqz=0225) 40.0 % POCT-GLUCOSE [id number] 17:25:00* Test Item Value Reference Range Comments POC-GLUCOSE METER (BEAKER) (test rnad=9704) 153 mg/dL 70-110 TESTED AT [facility] [address] [facility] [address] POCT-GLUCOSE [id number] 15:41:00* Test Item Value Reference Range Comments POC-GLUCOSE METER (BEAKER) (test xpvk=1986) 163 mg/dL 70-110 TESTED AT [facility] [address] [facility] [address] RAD, CHEST, 1 VIEW, NON [id number] 15:40:00Reason for exam:->check line and tube placementShould this be performed at the bedside?->YesFINAL REPORT CHEST AP PORTABLE Comparison exam: 06/23/2018 History provided: Status post CABG ET tube in satisfactory place with tip at the level of the clavicles. Lynndyl-Nitza catheter from right jugular approach with tip in the right pulmonary artery. Right jugular triple-lumen catheter with tip at the level of the SVC. Flexible chest/mediastinal drainage tubes with no pneumothorax. Bibasilar atelectasis. Normal vascularity. IMPRESSION: Stable postop chest appearance. Bibasilar atelectasis. Satisfactory tube positions. Signed: Kwesi Gann MDReport Verified Date/Time: 06/24/2018 15:40:28 Reading Location: [facility] Diagnostic Imaging Reading Room [place] [address] 1.310.12 C METABOLIC [id number] 15:37:00* Test Item Value Reference Range Comments SODIUM (BEAKER) (test lqbp=349) 139 meq/L 135-148 POTASSIUM (BEAKER) (test uzgi=185) 5.1 meq/L 3.5-5.5 Specimen slightly hemolyzed CHLORIDE (BEAKER) (test ynsu=589) 114 meq/L 98-106 CO2 (BEAKER) (test yjea=917) 20 meq/L 20-31 BLOOD UREA NITROGEN (BEAKER) (test kpgl=022) 16 mg/dL 10-26 CREATININE (BEAKER) (test oydr=450) 0.79 mg/dL 0.50-1.20 Specimen slightly hemolyzed GLUCOSE RANDOM (BEAKER) (test ivhu=725) 151 mg/dL 70-110 CALCIUM (BEAKER) (test vtxh=485) 7.6 mg/dL 8.5-10.5 EGFR (BEAKER) (test yazy=9088) 101 mL/min/1.73 sq m ESTIMATED GFR IS NOT ACCURATE CREATININE CLEARANCE IN PREDICTING GLOMERULAR FILTRATION RATE. ESTIMATED GFR IS NOT APPLICABLE FOR DIALYSIS PATIENTS. [id number] 15:35:00* Test Item Value Reference Range Comments MAGNESIUM (BEAKER) (test qdpi=915) 2.8 mg/dL 1.5-3.0 Specimen slightly hemolyzed [id number] 15:21:00* Test Item Value Reference Range Comments ACTIVATED CLOTTING TIME (BEAKER) (test tsqi=960) 120 sec TESTED AT [place] [address] [id number] 15:21:00* Test Item Value Reference Range Comments ACTIVATED CLOTTING TIME (BEAKER) (test pxmw=575) 395 sec TESTED AT [place] [address] [id number] 15:21:00* Test Item Value Reference Range Comments ACTIVATED CLOTTING TIME (BEAKER) (test naqz=965) 450 sec TESTED AT [place] [address] [id number] 15:21:00* Test Item Value Reference Range Comments ACTIVATED CLOTTING TIME (BEAKER) (test xrxl=662) 384 sec TESTED AT [place] [address] [id number] 15:21:00* Test Item Value Reference Range Comments ACTIVATED CLOTTING TIME (BEAKER) (test jnhk=196) 224 sec TESTED AT [place] [address] [id number] 15:21:00* Test Item Value Reference Range Comments ACTIVATED CLOTTING TIME (BEAKER) (test wbtx=831) 120 sec TESTED AT [place] [address] [id number] 15:19:00* Test Item Value Reference Range Comments PROTIME (BEAKER) (test ddyq=187) 18.8 seconds 11.8-14.4 INR (BEAKER) (test snnt=500) 1.6 1.2-1.5 PARTIAL THROMBOPLASTIN TIME (BEAKER) (test sbro=024) 32.1 seconds 23.2-36.1 RECOMMENDED COUMADIN/WARFARIN INR THERAPY RANGESSTANDARD DOSE: 2.0 - 3.0 Inclu amanda: PROPHYLAXIS for venous thrombosis, systemic embolization; TREATMENT for zi ous thrombosis and/or pulmonary embolus.HIGH RISK: Target INR is 2.5-3.5 for pat ients with mechanical heart valves.POCT-BLOOD GASES, [id number] 15:19:00 * Test Item Value Reference Range Comments TEMP, CELSIUS-POC (BEAKER) (test aatq=2733) 37.0 FIO2-POC (BEAKER) (test qdav=7643) TESTED AT [facility] [address] [facility] [address] PH, ARTERIAL-POC (BEAKER) (test xmfr=6643) 7.372 7.350-7.450 PCO2, ARTERIAL-POC (BEAKER) (test gvbu=2928) 41.4 mm Hg 35.0-45.0 PO2, ARTERIAL-POC (BEAKER) (test idtb=7534) 201.0 mm Hg 80.0-90.0 SO2, ARTERIAL-POC (BEAKER) (test ihrm=6368) 100.0 % 96.0-97.0 HCO3, ARTERIAL-POC (BEAKER) (test ihsv=1471) 24.0 meq/L 21.0-29.0 BASE EXCESS, ARTERIAL-POC (BEAKER) (test sguz=6278) -1.0 meq/L -2.0-3.0 [id number] 15:19:00* Test Item Value Reference Range Comments POC-SODIUM (BEAKER) (test anyi=6704) 141 meq/L 135-148 TESTED AT [facility] [address] [facility] [address] [id number] 15:19:00* Test Item Value Reference Range Comments POC-POTASSIUM (BEAKER) (test ihmm=6123) 5.2 meq/L 3.6-5.5 TESTED AT [facility] [address] [facility] [address] [id number] 15:19:00* Test Item Value Reference Range Comments POC-GLUCOSE (BEAKER) (test wnaz=8087) 152 mg/dL 70-110 TESTED AT [place] [address] POCT-CALCIUM [id number] 15:19:00* Test Item Value Reference Range Comments POC-CALCIUM IONIZED (BEAKER) (test cdek=8320) 1.08 mmol/L 1.12-1.27 TESTED AT [place] [address] [id number] 15:19:00* Test Item Value Reference Range Comments POC-HEMATOCRIT (BEAKER) (test agww=9731) 32 % 40-50 TESTED AT [place] [address] [id number] 15:19:00* Test Item Value Reference Range Comments POC-HEMOGLOBIN (BEAKER) (test lhku=3956) 10.9 g/dL 13.0-16.8 TESTED AT [place] [address]TESTED AT [place] [address] POCT-BLOOD GASES, [id number] 15:19:00* Test Item Value Reference Range Comments TEMP, CELSIUS-POC (BEAKER) (test swnf=4418) 37.0 FIO2-POC (BEAKER) (test ybsi=3421) TESTED AT [facility] [id number] [place] [address] PH, ARTERIAL-POC (BEAKER) (test ejaz=7628) 7.398 7.350-7.450 PCO2, ARTERIAL-POC (BEAKER) (test piea=0649) 45.7 mm Hg 35.0-45.0 PO2, ARTERIAL-POC (BEAKER) (test pmdw=1418) 375.0 mm Hg 80.0-90.0 SO2, ARTERIAL-POC (BEAKER) (test gcoh=0027) 100.0 % 96.0-97.0 HCO3, ARTERIAL-POC (BEAKER) (test yiek=6898) 28.2 meq/L 21.0-29.0 BASE EXCESS, ARTERIAL-POC (BEAKER) (test qlow=4810) 3.0 meq/L -2.0-3.0 [id number] 15:19:00* Test Item Value Reference Range Comments POC-SODIUM (BEAKER) (test hxrc=1070) 134 meq/L 135-148 TESTED AT [place] [address] [id number] 15:19:00* Test Item Value Reference Range Comments POC-POTASSIUM (BEAKER) (test rqmz=6173) 6.6 meq/L 3.6-5.5 TESTED AT [place] [address] [id number] 15:19:00* Test Item Value Reference Range Comments POC-GLUCOSE (BEAKER) (test dstc=5905) 164 mg/dL 70-110 TESTED AT [place] [address] POCT-CALCIUM [id number] 15:19:00* Test Item Value Reference Range Comments POC-CALCIUM IONIZED (BEAKER) (test twhw=3547) 1.09 mmol/L 1.12-1.27 TESTED AT [place] [address] [id number] 15:19:00* Test Item Value Reference Range Comments POC-HEMATOCRIT (BEAKER) (test xqwm=9652) 23 % 40-50 TESTED AT [place] [address] [id number] 15:19:00* Test Item Value Reference Range Comments POC-HEMOGLOBIN (BEAKER) (test ebom=1797) 7.8 g/dL 13.0-16.8 TESTED AT [place] [address]TESTED AT [place] [address] POCT-BLOOD GASES, [id number] 15:19:00* Test Item Value Reference Range Comments TEMP, CELSIUS-POC (BEAKER) (test sfez=0287) 37.0 FIO2-POC (BEAKER) (test qkwy=9465) TESTED AT [place] [address] PH, ARTERIAL-POC (BEAKER) (test leyl=9856) 7.387 7.350-7.450 PCO2, ARTERIAL-POC (BEAKER) (test tehh=4547) 46.6 mm Hg 35.0-45.0 PO2, ARTERIAL-POC (BEAKER) (test ekkl=0889) 394.0 mm Hg 80.0-90.0 SO2, ARTERIAL-POC (BEAKER) (test awft=4151) 100.0 % 96.0-97.0 HCO3, ARTERIAL-POC (BEAKER) (test eyst=3896) 28.1 meq/L 21.0-29.0 BASE EXCESS, ARTERIAL-POC (BEAKER) (test ynln=8682) 3.0 meq/L -2.0-3.0 [id number] 15:19:00* Test Item Value Reference Range Comments POC-SODIUM (BEAKER) (test xqls=1897) 135 meq/L 135-148 TESTED AT [place] [address] [id number] 15:19:00* Test Item Value Reference Range Comments POC-POTASSIUM (BEAKER) (test auld=4760) 6.2 meq/L 3.6-5.5 TESTED AT [address] [address] [id number] 15:19:00* Test Item Value Reference Range Comments POC-GLUCOSE (BEAKER) (test ytyq=4700) 120 mg/dL 70-110 TESTED AT [address] [address] POCT-CALCIUM [id number] 15:19:00* Test Item Value Reference Range Comments POC-CALCIUM IONIZED (BEAKER) (test ryzy=0511) 0.90 mmol/L 1.12-1.27 TESTED AT [address] [address] [id number] 15:19:00* Test Item Value Reference Range Comments POC-HEMATOCRIT (BEAKER) (test brot=5011) 24 % 40-50 TESTED AT [place] [id number] 15:19:00* Test Item Value Reference Range Comments POC-HEMOGLOBIN (BEAKER) (test irgv=0122) 8.2 g/dL 13.0-16.8 TESTED AT [facility] [address] [place] [address]TESTED AT [facility] [address] [facility] [address] POCT-BLOOD GASES, [id number] 15:19:00* Test Item Value Reference Range Comments TEMP, CELSIUS-POC (BEAKER) (test fnec=9913) 37.0 FIO2-POC (BEAKER) (test pyup=5969) TESTED AT [facility] [address] [place] [address] PH, ARTERIAL-POC (BEAKER) (test uaws=2667) 7.489 7.350-7.450 PCO2, ARTERIAL-POC (BEAKER) (test vhbg=3958) 40.5 mm Hg 35.0-45.0 PO2, ARTERIAL-POC (BEAKER) (test jnuy=7795) 573.0 mm Hg 80.0-90.0 SO2, ARTERIAL-POC (BEAKER) (test ylbj=6439) 100.0 % 96.0-97.0 HCO3, ARTERIAL-POC (BEAKER) (test injn=1478) 30.8 meq/L 21.0-29.0 BASE EXCESS, ARTERIAL-POC (BEAKER) (test nnwm=5314) 7.0 meq/L -2.0-3.0 [id number] 15:19:00* Test Item Value Reference Range Comments POC-SODIUM (BEAKER) (test gcbn=6067) 139 meq/L 135-148 TESTED AT [facility] [id number] [place], [place] [address] [id number] 15:19:00* Test Item Value Reference Range Comments POC-POTASSIUM (BEAKER) (test zzpn=3164) 4.5 meq/L 3.6-5.5 TESTED AT [place] [address] [id number] 15:19:00* Test Item Value Reference Range Comments POC-GLUCOSE (BEAKER) (test plgz=3693) 127 mg/dL 70-110 TESTED AT [facility] [id number] [place] [address] POCT-CALCIUM [id number] 15:19:00* Test Item Value Reference Range Comments POC-CALCIUM IONIZED (BEAKER) (test psum=2008) 1.07 mmol/L 1.12-1.27 TESTED AT [facility] [address] [facility] [address] [id number] 15:19:00* Test Item Value Reference Range Comments POC-HEMATOCRIT (BEAKER) (test bqxm=3944) 37 % 40-50 TESTED AT [facility] [address] [facility] [address] [id number] 15:19:00* Test Item Value Reference Range Comments POC-HEMOGLOBIN (BEAKER) (test moyl=2406) 12.6 g/dL 13.0-16.8 TESTED AT [facility] [address] [facility] [address]PMCUJZ AT [facility] [address] [place] [address] PROTHROMBIN [id number] 15:18:00* Test Item Value Reference Range Comments PROTIME (BEAKER) (test nieo=025) 18.8 seconds 11.8-14.4 INR (BEAKER) (test hkwj=443) 1.6 1.2-1.5 RECOMMENDED COUMADIN/WARFARIN INR THERAPY RANGESSTANDARD DOSE: 2.0 - 3.0 Inclu amanda: PROPHYLAXIS for venous thrombosis, systemic embolization; TREATMENT for zi ous thrombosis and/or pulmonary embolus.HIGH RISK: Target INR is 2.5-3.5 for pat ients with mechanical heart valves.CBC W/PLT COUNT & AUTO [id number] 15:15:00* Test Item Value Reference Range Comments WHITE BLOOD CELL COUNT (BEAKER) (test wbxj=042) 13.0 K/ L 4.0-10.0 RED BLOOD CELL COUNT (BEAKER) (test jcds=992) 3.64 M/ L 4.20-5.80 HEMOGLOBIN (BEAKER) (test ihst=738) 11.3 GM/DL 13.0-16.8 HEMATOCRIT (BEAKER) (test qrqb=153) 33.8 % 36.0-50.0 MEAN CORPUSCULAR VOLUME (BEAKER) (test mxwx=091) 92.9 fL 82.0-99.0 MEAN CORPUSCULAR HEMOGLOBIN (BEAKER) (test jzen=234) 31.0 pg 27.0-33.0 MEAN CORPUSCULAR HEMOGLOBIN CONC (BEAKER) (test gdlg=888) 33.4 GM/DL 32.0-36.0 RED CELL DISTRIBUTION WIDTH (BEAKER) (test fhbh=919) 12.7 % 12.0-15.0 PLATELET COUNT (BEAKER) (test avxo=305) 118 K/CU MM 150-430 MEAN PLATELET VOLUME (BEAKER) (test oltq=319) 10.1 fL 6.0-11.5 MPV-Approximately 20% positive bias due to method change. NUCLEATED RED BLOOD CELLS (BEAKER) (test uubx=788) 0 /100 WBC 0-0 NEUTROPHILS RELATIVE PERCENT (BEAKER) (test iaox=344) 74 % LYMPHOCYTES RELATIVE PERCENT (BEAKER) (test uafc=550) 22 % MONOCYTES RELATIVE PERCENT (BEAKER) (test rfqh=085) 3 % EOSINOPHILS RELATIVE PERCENT (BEAKER) (test ojul=285) 1 % BASOPHILS RELATIVE PERCENT (BEAKER) (test kdlu=886) 0 % NEUTROPHILS ABSOLUTE COUNT (BEAKER) (test wdkr=664) 9.59 K/ L 1.80-8.00 LYMPHOCYTES ABSOLUTE COUNT (BEAKER) (test dhgg=948) 2.82 K/ L 1.48-4.50 MONOCYTES ABSOLUTE COUNT (BEAKER) (test dlpq=023) 0.42 K/ L 0.00-1.30 EOSINOPHILS ABSOLUTE COUNT (BEAKER) (test rsid=333) 0.11 K/ L 0.00-0.50 BASOPHILS ABSOLUTE COUNT (BEAKER) (test finf=506) 0.03 K/ L 0.00-0.20 IMMATURE GRANULOCYTES-RELATIVE PERCENT (BEAKER) (test dago=5137) 0 % 0-0 BLOOD GAS, [id number] 15:12:00* Test Item Value Reference Range Comments PH ARTERIAL (BEAKER) (test eygh=131) 7.36 7.35-7.45 PCO2 ARTERIAL (BEAKER) (test cfwe=044) 38 mmHg 35-45 PO2 ARTERIAL (BEAKER) (test tovd=795) 289 mmHg 80-90 O2 SATURATION ARTERIAL (BEAKER) (test byjs=477) 99.7 % 96.0-97.0 HCO3 ARTERIAL (BEAKER) (test jwop=037) 21 mmol/L 21-29 BASE EXCESS ARTERIAL (BEAKER) (test scqz=651) -4.3 mmol/L -2.0-3.0 PATIENT TEMPERATURE (BEAKER) (test dgdp=1408) 36.0 C FIO2 (BEAKER) (test dtys=0674) 100.0 % CALCIUM, [id number] 15:12:00* Test Item Value Reference Range Comments CALCIUM IONIZED (BEAKER) (test eips=168) 0.93 mmol/L 1.12-1.27 PH, BLOOD (BEAKER) (test mown=0412) 7.36 TYPE AND SCREEN, [id number] 10:03:00* Test Item Value Reference Range Comments ABO/RH AUTOMATED (BEAKER) (test kqok=7712) A Neg AB SCREEN (BEAKER) (test kvjp=207) NEGATIVE HEMOGLOBIN [id number] 09:41:00* Test Item Value Reference Range Comments HEMOGLOBIN A1C (BEAKER) (test vdor=646) 5.7 % 4.3-6.1 URINALYSIS W/ [id number] 09:25:00* Test Item Value Reference Range Comments COLOR (BEAKER) (test nxhe=235) Yellow CLARITY (BEAKER) (test mznr=953) Clear SPECIFIC GRAVITY UA (BEAKER) (test zylx=975) 1.023 1.001-1.035 Specific gravity by refractometer. PH UA (BEAKER) (test iser=396) 5.5 5.0-8.0 PROTEIN UA (BEAKER) (test nxpd=698) Negative Negative GLUCOSE UA (BEAKER) (test tyfn=046) Negative Negative KETONES UA (BEAKER) (test zynb=502) Negative Negative BILIRUBIN UA (BEAKER) (test oryd=222) Negative Negative BLOOD UA (BEAKER) (test wmji=575) Negative Negative NITRITE UA (BEAKER) (test dipi=242) Negative Negative LEUKOCYTE ESTERASE UA (BEAKER) (test izos=013) Negative Negative UROBILINOGEN UA (BEAKER) (test skff=039) 0.2 mg/dL 0.2-1.0 RBC UA (BEAKER) (test vcka=247) 1 /HPF WBC UA (BEAKER) (test awty=211) 1 /HPF BACTERIA (BEAKER) (test gqiy=521) Few MUCUS (BEAKER) (test yhyd=9873) Few SQUAMOUS EPITHELIAL (BEAKER) (test xkwi=132) 1 /HPF SOURCE(BEAKER) (test gpzg=6714) BASIC METABOLIC [id number] 08:46:00* Test Item Value Reference Range Comments SODIUM (BEAKER) (test rvcc=284) 140 meq/L 135-148 POTASSIUM (BEAKER) (test hsxj=792) 4.5 meq/L 3.5-5.5 CHLORIDE (BEAKER) (test lzgp=681) 103 meq/L 98-106 CO2 (BEAKER) (test yksl=655) 31 meq/L 20-31 BLOOD UREA NITROGEN (BEAKER) (test zltf=855) 18 mg/dL 10-26 CREATININE (BEAKER) (test hdoq=528) 0.95 mg/dL 0.50-1.20 GLUCOSE RANDOM (BEAKER) (test pwge=552) 118 mg/dL 70-110 CALCIUM (BEAKER) (test tzfh=425) 10.2 mg/dL 8.5-10.5 EGFR (BEAKER) (test fvfu=3580) 81 mL/min/1.73 sq m ESTIMATED GFR IS NOT ACCURATE CREATININE CLEARANCE IN PREDICTING GLOMERULAR FILTRATION RATE. ESTIMATED GFR IS NOT APPLICABLE FOR DIALYSIS PATIENTS. LIPID [id number] 08:44:00* Test Item Value Reference Range Comments TRIGLYCERIDES (BEAKER) (test zmdk=105) 71 mg/dL CHOLESTEROL (BEAKER) (test giwp=145) 136 mg/dL HDL CHOLESTEROL (BEAKER) (test srsw=764) 61 mg/dL LDL CHOLESTEROL CALCULATED (BEAKER) (test qbfc=414) 61 mg/dL Triglyceride Reference Range: Low Risk <150 Borderline 150-199 High Risk 200-499 Very High Risk >=500Cholesterol Reference Range: Low Risk <200 Borderline 200-239 High Risk >240HDL Cholesterol Reference Range: Low Risk >=60 High Risk <40LDL Cholesterol Reference Range: Optimal <100 Near Optimal 100-129 Borderline 130-159 High 160-189 Very High >=190 RAD, CHEST, 2 [id number] 08:41:00Reason for exam:->pat -coronary artery diseaseShould this be performed at the bedside?->NoFINAL REPORT Chest, PA and lateral. History: Coronary artery disease. Comparison: None available. Discussion: The cardiomediastinal silhouette and pulmonary vasculature are within normal limits. The lungs are clear without evidence of consolidation or effusion. There are no acute osseous abnormalities. The soft tissues are unremarkable. IMPRESSION: No acute cardiopulmonary abnormality. Signed: Brit Herman MDReport Verified Date/Time: 06/23/2018 08:41:14 Reading Location: [address] Radiology Reading Room /[id number] 08:25:00* Test Item Value Reference Range Comments PROTIME (BEAKER) (test myse=444) 13.8 seconds 11.8-14.4 INR (BEAKER) (test skic=912) 1.0 1.2-1.5 PARTIAL THROMBOPLASTIN TIME (BEAKER) (test qrnh=298) 28.0 seconds 23.2-36.1 RECOMMENDED COUMADIN/WARFARIN INR THERAPY RANGESSTANDARD DOSE: 2.0 - 3.0 Inclu amanda: PROPHYLAXIS for venous thrombosis, systemic embolization; TREATMENT for zi ous thrombosis and/or pulmonary embolus.HIGH RISK: Target INR is 2.5-3.5 for pat ients with mechanical heart valves.CBC W/PLT COUNT & AUTO [id number] 08:18:00* Test Item Value Reference Range Comments WHITE BLOOD CELL COUNT (BEAKER) (test qevr=752) 7.8 K/ L 4.0-10.0 RED BLOOD CELL COUNT (BEAKER) (test aiez=795) 4.90 M/ L 4.20-5.80 HEMOGLOBIN (BEAKER) (test oofs=548) 15.0 GM/DL 13.0-16.8 HEMATOCRIT (BEAKER) (test ptvj=678) 45.2 % 36.0-50.0 MEAN CORPUSCULAR VOLUME (BEAKER) (test lkaf=703) 92.2 fL 82.0-99.0 MEAN CORPUSCULAR HEMOGLOBIN (BEAKER) (test cciu=099) 30.6 pg 27.0-33.0 MEAN CORPUSCULAR HEMOGLOBIN CONC (BEAKER) (test hxpz=135) 33.2 GM/DL 32.0-36.0 RED CELL DISTRIBUTION WIDTH (BEAKER) (test jmar=238) 12.8 % 12.0-15.0 PLATELET COUNT (BEAKER) (test hmly=963) 185 K/CU MM 150-430 MEAN PLATELET VOLUME (BEAKER) (test slfx=523) 10.2 fL 6.0-11.5 MPV-Approximately 20% positive bias due to method change. NUCLEATED RED BLOOD CELLS (BEAKER) (test ktff=431) 0 /100 WBC 0-0 NEUTROPHILS RELATIVE PERCENT (BEAKER) (test xfpy=374) 61 % LYMPHOCYTES RELATIVE PERCENT (BEAKER) (test dvvo=069) 28 % MONOCYTES RELATIVE PERCENT (BEAKER) (test btpx=752) 8 % EOSINOPHILS RELATIVE PERCENT (BEAKER) (test xsgv=800) 3 % BASOPHILS RELATIVE PERCENT (BEAKER) (test fkgb=876) 0 % NEUTROPHILS ABSOLUTE COUNT (BEAKER) (test tbum=228) 4.70 K/ L 1.80-8.00 LYMPHOCYTES ABSOLUTE COUNT (BEAKER) (test tdyv=472) 2.18 K/ L 1.48-4.50 MONOCYTES ABSOLUTE COUNT (BEAKER) (test qxqd=146) 0.63 K/ L 0.00-1.30 EOSINOPHILS ABSOLUTE COUNT (BEAKER) (test aqxz=684) 0.20 K/ L 0.00-0.50 BASOPHILS ABSOLUTE COUNT (BEAKER) (test japr=953) 0.03 K/ L 0.00-0.20 IMMATURE GRANULOCYTES-RELATIVE PERCENT (BEAKER) (test javp=9537) 0 % 0-0
--- NOTE | 2019-06-01 16:15 | NUR ---
Called to the front while registration was in with a patient. and Mrs. Flood said they had been waiting for an hour and that they had called the hospital emergency room who told them they were not busy so, they have decided to go to the emergency room at the hospital. Currently all of our rooms at this facility are full.
== END 2019-06-01 16:15 | disposition left against medical advice (07) ==
LOC: FSED 15:14
DX: R61 Generalized hyperhidrosis (principal)

== ENCOUNTER 2019-06-01 16:17 | Emergency (ER) | payer OTHER ==
[~2019-06-01] VITALS: Ht 170.2 cm; Wt 99.8 kg
--- OUTSIDE RECORDS SUMMARY | 2019-06-01 16:20 | XMS REPORT | Clinical Summary ---
Author Author ANGELA FluoresentricSaint Alphonsus EagleRetidoc Williamson Memorial HospitalGlo BagsSwedish Medical Center Ballard Address Unknown Phone Unavailable Care Team Providers Care Cigarette Vendor Name Role Phone PCP Unavailable Allergies No [...] bypass graft) 06/24/2018 CAD (coronary artery disease), [place] coronary artery 06/24/2018 Encounters Care Team Description [...] Ruiz, Heine, MD Coronary artery disease involving [place] coronary artery of [place] heart without angina pectoris; S/P CABG (coronary artery bypass graft); Paroxysmal A-fib (HCC); Shortness of breath; Stridor 06/24/2018 [facility] General Internal Medicine - Encounter 07/03/2018 [...] Type Area Manufactur er 10/05/20202 / / [id number] Spng Surgcel 2x4in Lf Strl 1961 - Cement/Eren N/A: Chest BIOMET:TRA [id number] ler/Adhesi GABBY Implanted: Qty: 1 on 06/24/2018 by Jackson Oconnell MD 06/05/2019 [id number] / / [id number] Pericard Closure 4ply 7x15cm Tissue [employer] [id number] - [id number] Graft/Subs CARDIOVASC Implanted: Qty: 1 on 06/24/2018 [...] ms QTC Calculatio n(Bazett) 492 ms R [place] 11 degrees T [place] 29 degrees Atrial fibrillati on with rapid [...] ms QTC Calculatio n(Bazett) 443 ms P [place] 77 degrees R [place] 25 degrees T [place] 25 degrees Normal sinus rhythm ST elevation consider inferolate ral injury or acute infarct * ACUTE VA Abnormal ECG When compared with ECG of [...] ms QTC Calculatio n(Bazett) 469 ms P [place] 66 degrees R [place] 5 degrees T [place] 14 degrees Normal sinus rhythm Right bundle [...] AM CDT BYPASS,AORTO CORONARY 06/24/2018 Atherosclerosis of [place] RANDI/SVG 11:10 AM CDT coronary artery of [place] heart without angina pectoris Case Notes CABG [...] ms QTC Calculatio n(Bazett) 394 ms P [place] 48 degrees R [place] 31 degrees T [place] 38 degrees Sinus bradycardi a Otherwise normal [...] included. Magnesium 2.3 1.5 - 3.0 mg/dL [facility] Specimen Blood Performing Organization Address City/State/Zipcode Phone Number [facility] [address] [place] [address] * CT chest without IV contrast (07/02/2018 5:45 PM CDT) Specimen Narrative Performed At FINAL REPORT [facility] HISTORY: stridor COMPARISON : None Technique [...] MD Report Verified Date/Time:07/02/2018 17:59:40 Reading Location: [address] Body Reading Room Procedure Note [...] Report Verified Date/Time: 07/02/2018 17:59:40 Reading Location: [facility] B1 C013Y [facility] Body Reading Room Performing Organization Address City/State/Zipcode Phone Number [employer] * PERIPHERAL VASCULAR REPORT - SCAN (07/02/2018 8:42 AM CDT) Narrative Performed At * CT neck soft tissue with IV contrast (06/30/2018 5:45 PM CDT) Specimen Narrative Performed At FINAL REPORT [employer] CT neck with contrast 06/30/2018 6:02 PM [...] MD Report Verified Date/Time:06/30/2018 18:07:11 Reading Location: [facility] Radiology Reading Room Procedure Note Interface, External [...] Report Verified Date/Time: 06/30/2018 18:07:11 Reading Location: [facility] Radiology Reading Room Performing Organization Address City/State/Zipcode Phone Number [employer] * Venous doppler arm, left (06/30/2018 3:35 PM CDT) Specimen Narrative Performed At FINAL REPORT [employer] Left upper extremity venous Doppler dated 06/30/2018 [...] MD Report Verified Date/Time:06/30/2018 15:49:03 Reading Location: [facility] Radiology Reading Room Procedure Note Interface, [...] Report Verified Date/Time: 06/30/2018 15:49:03 Reading Location: [facility] Radiology Reading Room Performing Organization Address City/State/Zipcode Phone Number [facility] * Basic Metabolic Panel (06/30/2018 5:20 AM CDT) Only the most recent of 6 results within the time period is included. Sodium 138 135 - 148 meq/L [facility] Potassium 3.6 3.5 - 5.5 meq/L [facility] Chloride 104 98 - 106 meq/L [facility] CO2 25 20 - 31 meq/L [facility] BUN 12 10 - 26 mg/dL [facility] Creatinine 0.73 0.50 - 1.20 mg/dL [facility] Glucose 87 70 - 110 mg/dL [facility] Calcium 8.8 8.5 - 10.5 mg/dL [facility] EGFR 110Comment: ESTIMATED GFR IS mL/min/1.73 sq m [facility] NOT ACCURATE CREATININE CLEARANCE IN PREDICTING GLOMERULAR FILTRATION RATE. ESTIMATED GFR IS NOT APPLICABLE FOR DIALYSIS PATIENTS. Specimen Blood Performing Organization Address City/State/Zipcode Phone Number [facility] [address] [place] [address] * XR chest 1 view portable / bedside (06/29/2018 5:00 AM CDT) Only the most recent of 5 results within the time period is included. Specimen Narrative Performed At FINAL REPORT [facility] RAD, CHEST, 1 VIEW, NON DEPT INDICATION: SOB COMPARISON: Prior day's exam FINDINGS: Portable frontal view of the chest. IMPRESSION: Support Lines: Multiple surgical drains are stable. Lungs and pleura: Basilar subsegmental atelectasis. No new consolidation. No pneumothorax. Heart and mediastinum: Stable contours. Stable surgical changes. Additional findings: None. Signed: JR Saunders Robert MD Report Verified Date/Time:06/29/2018 05:15:41 Reading Location: [address] Transitional Reading Room Procedure Note Interface, [...] Report Verified Date/Time: 06/29/2018 05:15:41 Reading Location: [facility] Transitional Reading Room Performing Organization Address City/State/Zipcode Phone Number [facility] * POC-Glucose meter (06/29/2018 2:56 AM CDT) Only the most recent of 21 results within the time period is included. POC-Glucose Meter 111 (H)Comment: TESTED AT [facility] 70 - 110 mg/dL [facility] [address] [facility] [address] Specimen Blood Performing Organization Address City/State/Zipcode Phone Number [facility] [address] [place] [address] [facility] * Blood gas, arterial (06/28/2018 3:06 PM CDT) Only the most recent of 7 results within the time period is included. pH, Arterial 7.45 7.35 - 7.45 [facility] pCO2, Arterial 39 35 - 45 mmHg [facility] pO2, Arterial 147 (H) 80 - 90 mmHg [facility] O2 Sat, Arterial 99.0 (H) 96.0 - 97.0 % [facility] HCO3, Arterial 26 21 - 29 mmol/L [facility] Base Excess, Arterial 2.1 -2.0 - 3.0 mmol/L [facility] Patient Temperature 37.0 C [facility] FIO2 40.0 % [facility] Specimen Blood, Arterial Performing Organization Address City/[facility]/Zipcode Phone Number [facility] [address] [place] [address] * CBC with platelet count + automated diff (06/28/2018 3:26 AM CDT) Only the most recent of 6 results within the time period is included. WBC 9.4 4.0 - 10.0 K/L [facility] RBC 3.08 (L) 4.20 - 5.80 M/L [facility] Hemoglobin 9.5 (L) 13.0 - 16.8 GM/DL [facility] Hematocrit 29.0 (L) 36.0 - 50.0 % [facility] MCV 94.2 82.0 - 99.0 fL [facility] MCH 30.8 27.0 - 33.0 pg [facility] MCHC 32.8 32.0 - 36.0 GM/DL [facility] RDW 13.2 12.0 - 15.0 % [facility] Platelets 168 150 - 430 K/CU MM [facility] MPV 10.8Comment: MPV-Approximately 6.0 - 11.5 fL [facility] 20% positive bias due to method change. nRBC 0 0 - 0 /100 WBC [facility] % Neutros 74 % [facility] % Lymphs 15 % [facility] % Monos 10 % [facility] % Eos 0 % [facility] % Baso 0 % [facility] # Neutros 6.93 1.80 - 8.00 K/L [facility] # Lymphs 1.44 (L) 1.48 - 4.50 K/L [facility] # Monos 0.91 0.00 - 1.30 K/L [facility] # Eos 0.03 0.00 - 0.50 K/L [facility] # Baso 0.04 0.00 - 0.20 K/L [facility] Immature 1 (H) 0 - 0 % [facility] Granulocytes-Relative Specimen Blood Performing Organization Address [facility] Centercode Phone Number [facility] [address] [place] [address] * Comprehensive metabolic panel (06/28/2018 3:26 AM CDT) Protein, Total 6.0 6.0 - 8.5 gm/dL [facility] Albumin 3.5 3.5 - 5.0 g/dL [facility] Alkaline Phosphatase 57 30 - 115 U/L [facility] Total Bilirubin 1.0 0.1 - 1.3 mg/dL [facility] Sodium 135 135 - 148 meq/L [facility] Potassium 4.4 3.5 - 5.5 meq/L [facility] Chloride 104 98 - 106 meq/L [facility] CO2 21 20 - 31 meq/L [facility] BUN 19 10 - 26 mg/dL [facility] Creatinine 0.80 0.50 - 1.20 mg/dL [facility] Glucose 122 (H) 70 - 110 mg/dL [facility] Calcium 8.8 8.5 - 10.5 mg/dL [facility] AST 197 (H) 5 - 40 U/L [facility] ALT 203 (H) 6 - 50 U/L [facility] EGFR 99Comment: ESTIMATED GFR IS mL/min/1.73 sq m [facility] NOT ACCURATE CREATININE CLEARANCE IN PREDICTING GLOMERULAR FILTRATION RATE. ESTIMATED GFR IS NOT APPLICABLE FOR DIALYSIS PATIENTS. Specimen Blood Performing Organization Address [facility] Centercode Phone Number [facility] [address] [place] [address] * ECG 12 lead (06/27/2018 9:37 AM CDT) Only the most recent of 3 results within the time period is included. Specimen Narrative Performed At Ventricular Rate 144 BPM GE MUSE Atrial Rate 141 BPM QRS Duration 88 ms Q-T Interval 318 ms QTC Calculation(Bazett) 492 ms R [place] 11 degrees T [place] 29 degrees Atrial fibrillation with rapid ventricular response Nonspecific ST and T wave abnormality , probably digitalis effect Abnormal ECG When compared with ECG of 26-JUN-2018 17:41, PREVIOUS ECG IS PRESENT Procedure Note Interface, External Ris In - 06/29/2018 3:12 PM CDT Ventricular Rate 144 BPM Atrial Rate 141 BPM QRS Duration 88 ms Q-T Interval 318 ms QTC Calculation(Bazett) 492 ms R [place] 11 degrees T [place] 29 degrees Atrial fibrillation with rapid ventricular response Nonspecific ST and T wave abnormality , probably digitalis effect Abnormal ECG When compared with ECG of 26-JUN-2018 17:41, PREVIOUS ECG IS PRESENT Performing Organization Address City/State/[facility] Centercode Phone Number [employer] * Calcium, Ionized (06/26/2018 4:24 AM CDT) Only the most recent of 3 results within the time period is included. Calcium, Ion 1.01 (L) 1.12 - 1.27 mmol/L [facility] pH, Blood 7.40 [facility] Specimen Blood Performing Organization Address City/[facility]/Zipcode Phone Number [facility] [address] [place] [address] * TRANSFUSION SERVICE REPORT - SCAN (06/25/2018 5:56 PM CDT) Only the most recent of 2 results within the time period is included. Narrative Performed At * PT/aPTT (06/24/2018 5:13 PM CDT) Only the most recent of 3 results within the time period is included. Protime 18.4 (H) 11.8 - 14.4 seconds [facility] INR 1.5 1.2 - 1.5 [facility] PTT 26.3 23.2 - 36.1 seconds [facility] Specimen Blood Narrative Performed At RECOMMENDED COUMADIN/WARFARIN INR THERAPY RANGES [facility] STANDARD DOSE: 2.0 - 3.0 Includes: PROPHYLAXIS for venous thrombosis, systemic embolization; TREATMENT for venous thrombosis and/or pulmonary embolus. HIGH RISK: Target INR is 2.5-3.5 for patients with mechanical heart valves. Performing Organization Address [facility] Center[facility] Phone Number [facility] [address] [place] [address] * Prepare Leuko-Red RBC (06/24/2018 4:18 PM CDT) CROSSMATCH COMPATIBLE SAFETRACE TX Unit ABO A Neg [facility] TX UNIT NUMBER [id number] [place] Status RETURNED FROM ISSUE [facility]AFET[place] Blood Bank Product RED BLOOD CELLS [place] PRODUCT CODE [id number] [place]AFET[place] CROSSMATCH COMPATIBLE SAFETRACE TX Unit ABO A Neg SAFETRACE TX UNIT NUMBER [id number] [place]AFET[place]ACE [place] Status RETURNED FROM ISSUE SAFETRACE [place] Blood Bank Product RED BLOOD CELLS [place] PRODUCT CODE [id number] SAF[place] CROSSMATCH COMPATIBLE SAFETRACE TX Unit ABO A Neg SAFETRACE TX UNIT NUMBER [id number] SAFETRACE [place] Status RETURNED FROM ISSUE SAFETRACE TX Blood Bank Product RED BLOOD CELLS SAFETRACE [place] PRODUCT CODE [id number] SAFETRACE TX CROSSMATCH COMPATIBLE SAFETRACE TX Unit ABO A Neg SAFETRACE TX UNIT NUMBER [id number] [place]AF[place] Status RETURNED FROM ISSUE SAFETRACE [place] Blood Bank Product RED BLOOD CELLS [place] PRODUCT CODE [id number] [place] Specimen Other Performing Organization Address [facility] Phone Number [place] * Sputum Culture + Gram Stain (06/24/2018 3:05 PM CDT) Result 1+ Normal respiratory ingrid [facility] present Gram Stain Result 2+ White blood cells seen [facility] Gram Stain Result 0-5 epithelial cells [facility] Gram Stain Result 1+ gram positive cocci [facility] Specimen Sputum Performing Organization Address [facility] Centercode Phone Number [facility] [address] [place] [address] * Prothrombin time/INR (06/24/2018 3:05 PM CDT) Protime 18.8 (H) 11.8 - 14.4 seconds [facility] INR 1.6 (H) 1.2 - 1.5 [facility] Specimen Blood Narrative Performed At RECOMMENDED COUMADIN/WARFARIN INR THERAPY RANGES [facility] STANDARD DOSE: 2.0 - 3.0 Includes: PROPHYLAXIS for venous thrombosis, systemic embolization; TREATMENT for venous thrombosis and/or pulmonary embolus. HIGH RISK: Target INR is 2.5-3.5 for patients with mechanical heart valves. Performing Organization Address City/State/Zipcode Phone Number [facility] [address] [place] [address] * POCT-HEMATOCRIT (06/24/2018 2:47 PM CDT) Only the most recent of 4 results within the time period is included. POC-Hematocrit 32 (L)Comment: TESTED AT [facility] 40 - 50 % [facility] [id number] [place] [address] Specimen Blood Performing Organization Address [facility] [place] [address] [facility] * POCT-HEMOGLOBIN (06/24/2018 2:47 PM CDT) Only the most recent of 4 results within the time period is included. POC-Hemoglobin 10.9 (L)Comment: TESTED AT 13.0 - 16.8 g/dL [facility] [address] [facility] [address]VTPHMF AT [facility] [address] [facility] [address] Specimen Blood Performing Organization Address [facility] [place] [address] [facility] * POCT-GLUCOSE (06/24/2018 2:47 PM CDT) Only the most recent of 4 results within the time period is included. POC-Glucose 152 (H)Comment: TESTED AT [facility] 70 - 110 mg/dL [address] [address] Specimen Blood Performing Organization Address [facility] Centercode Phone Number [address] [address] [facility] * POC-Sodium (06/24/2018 2:47 PM CDT) Only the most recent of 4 results within the time period is included. POC-Sodium 141Comment: TESTED AT [facility] 135 - 148 meq/L [facility] [id number] [place] [address] Specimen Blood Performing Organization Address [facility] [place] [address] [phone] [place] [address] * POC-Potassium (06/24/2018 2:47 PM CDT) Only the most recent of 4 results within the time period is included. POC-Potassium 5.2Comment: TESTED AT [facility] 3.6 - 5.5 meq/L [facility] [id number] [place] [address] Specimen Blood Performing Organization Address [facility] Phone Number [address] * POC-Calcium ionized (06/24/2018 2:47 PM CDT) Only the most recent of 4 results within the time period is included. POC-Calcium Ionized 1.08 (L)Comment: TESTED AT 1.12 - 1.27 mmol/L [facility] [id number] [place] [address] Specimen Blood Performing Organization Address [facility] [place] [address] [phone] * POC-Blood gases, arterial (06/24/2018 2:47 PM CDT) Only the most recent of 4 results within the time period is included. Temp. Celsius-POC 37.0 [facility] FIO2-POC Comment: TESTED AT [facility] [address] [facility] [address] pH, Arterial-POC 7.372 7.350 - 7.450 [facility] PCO2, Arterial-POC 41.4 35.0 - 45.0 mm Hg [facility] PO2, Arterial-POC 201.0 (H) 80.0 - 90.0 mm Hg [facility] SO2, Arterial-POC 100.0 (H) 96.0 - 97.0 % [facility] HCO3, Arterilal-POC 24.0 21.0 - 29.0 meq/L [facility] BE, Arterial-POC -1.0 -2.0 - 3.0 meq/L [facility] Specimen Blood Performing Organization Address City/[facility] Centercode Phone Number [facility] [address] [place] [address] [place] [address] [phone] * POC ACTIVATED CLOTTING TIME (06/24/2018 2:46 PM CDT) Only the most recent of 6 results within the time period is included. Activated Clotting Time 120Comment: TESTED AT [facility] sec [facility] [address] [facility] [address] Specimen Blood Performing Organization Address City/[facility] Phone Number [facility] [address] [place] [address] [phone] * XR chest 2 views (06/23/2018 [...] MD Report Verified Date/Time:06/23/2018 08:41:14 Reading Location: [address] Radiology Reading Room Procedure Note Interface, [...] Report Verified Date/Time: 06/23/2018 08:41:14 Reading Location: [address] Radiology Reading Room Performing Organization Address City/State/Zipcode Phone Number [facility] * Type and screen, automated (06/23/2018 8:06 AM CDT) ABO/RH AUTOMATED (BEAKER) Comment: This is a corrected [facility] result. Previous result was A [facility] Neg on 06/23/2018 at 1003 CDT Ab Scrn Comment: This is a corrected [facility] result. Previous result was [facility] NEGATIVE on 06/23/2018 at 1003 CDT ABORh A NEGATIVE [facility] Antibody Screen NEGATIVE [facility] Specimen Blood Performing Organization Address City/[facility] Phone Number [facility] [address] [place] [address] HOSPITAL * Urinalysis w/Microscopic (06/23/2018 8:06 AM CDT) Color, UA Yellow [facility] Clarity, UA Clear [facility] Specific [place], UA 1.023Comment: Specific gravity 1.001 - 1.035 [facility] by refractometer. pH, UA 5.5 5.0 - 8.0 [facility] Protein, UA Negative Negative [facility] Glucose, UA Negative Negative [facility] Ketones, UA Negative Negative [facility] Bilirubin, UA Negative Negative [facility] Blood, UA Negative Negative [facility] Nitrite, UA Negative Negative [facility] Leukocytes, UA Negative Negative [facility] Urobilinogen, UA 0.2 0.2 - 1.0 mg/dL [facility] RBC, UA 1 /HPF [facility] WBC, UA 1 /HPF [facility] Bacteria, UA Few [facility] Mucus Few [facility] Squam Epithel, UA 1 /HPF [facility] Specimen Source [facility] Specimen Urine Performing Organization Address [facility] Centercode Phone Number [facility] [address] [place] [address] * Hemoglobin A1c (06/23/2018 8:06 AM CDT) Hemoglobin A1C 5.7 4.3 - 6.1 % [facility] Specimen Blood Performing Organization Address [facility] Centercode Phone Number [facility] [address] [place] [address] * Lipid panel (06/23/2018 8:06 AM CDT) Triglycerides 71 mg/dL [facility] Cholesterol 136 mg/dL [facility] HDL 61 mg/dL [facility] LDL Calculated 61 mg/dL [facility] Specimen Blood Narrative Performed At Triglyceride Reference Range: [facility] Low Risk <150 [id number] High Risk 200-499 Very High Risk>=500 Cholesterol Reference Range: Low Risk <200 [id number] High Risk>240 HDL Cholesterol Reference Range: Low Risk >=60 High Risk <40 LDL Cholesterol Reference Range: Optimal<100 Near [id number] Very High >=190 Performing Organization Address [facility] Centercode Phone Number [facility] [address] [place] [address] after 05/31/2018 Insurance Payer Benefit Subscriber ID Type Phone Address Plan / Group AETNA - MGD CARE AETNA HMO xxxxxxxxxx HMO/POS POS QPOS Advance Directives For more information, please contact: [place] [address] [place] [address] Date Inactivated Comments Code Status Date Activated 07/03/2018 11:54 AM Full Code 06/24/2018 2:59 PM This code status was determined by: Patient
[2019-06-01] MEDS ORDERED: ASPIRIN 81 MG CHEW TAB PO ONE (17:00)
[2019-06-01 17:09] LABS: BASOPHILS % 0.5 % (0.0-1.0); EOSINOPHILS # (AUTO) 0.2 (0.0-0.4); EOSINOPHILS % 2.7 % (0.0-6.0); HEMOGLOBIN 14.6 g/dL (14.0-18.0); LYMPHOCYTES # (AUTO) 1.7 (1.0-3.2); LYMPHOCYTES % 29.9 % (18.0-39.1); MEAN CORPUSCULAR HEMOGLOBIN 30.4 pg (28-32); MEAN CORPUSCULAR VOLUME 89.6 fL (81-99); MONOCYTES # (AUTO) 0.5 (0.2-0.8); MONOCYTES % 9.2 % (4.4-11.3); NEUTROPHILS # (AUTO) 3.3 (2.1-6.9); NEUTROPHILS % 57.5 % (38.7-80.0); PLATELET COUNT 185 x10e3/uL (140-360)
--- NOTE | 2019-06-01 17:16 | Diagnostic Imaging Report ---
EXAMINATION: CHEST SINGLE (PORTABLE) INDICATION: Chest pain ^CHEST PAIN ^Y COMPARISON: None FINDINGS: TUBES and LINES: Sternal wires and postsurgical change to the heart. LUNGS: Lungs are well inflated. Lungs are clear. There is no evidence of pneumonia or pulmonary edema. PLEURA: No pleural effusion or pneumothorax. HEART AND MEDIASTINUM: The cardiomediastinal silhouette is unremarkable. BONES AND SOFT TISSUES: No acute osseous lesion. Soft tissues are unremarkable. UPPER ABDOMEN: No free air under the diaphragm. IMPRESSION: No acute thoracic abnormality. Signed by: Dr. Valdemar Cyr M.D. on 06/01/2019 5:13 PM
[2019-06-01 17:19] LABS: INR 0.92; PROTHROMBIN TIME 12.8 seconds (11.9-14.5)
[2019-06-01 17:20] LABS: PARTIAL THROMBOPLASTIN TIME 26.1 seconds (23.8-35.5)
[2019-06-01 17:27] LABS: ALANINE AMINOTRANSFERASE 31 IU/L (0-55); ALBUMIN 4.1 g/dL (3.5-5.0); ALBUMIN/GLOBULIN RATIO 1.6 (0.8-2.0); ALKALINE PHOSPHATASE 52 IU/L (40-150); ANION GAP 12.2 mmol/L (8-16); BLOOD UREA NITROGEN 19 mg/dL (7-26); BUN/CREATININE RATIO 22 (6-25); CALCIUM 9.4 mg/dL (8.4-10.2); CARBON DIOXIDE 28 mmol/L (22-29); CHLORIDE 105 mmol/L (98-107); CREATINE KINASE 142 IU/L (30-200); CREATININE, SERUM 0.85 mg/dL (0.72-1.25); EST GLOMERULAR FILTRATION RATE > 60 ML/MIN (60-); GLUCOSE 84 mg/dL (74-118); POTASSIUM 4.2 mmol/L (3.5-5.1); SODIUM 141 mmol/L (136-145)
[2019-06-01 17:58] LABS: BILIRUBIN,URINE NEGATIVE (NEGATIVE); CLARITY,URINE CLEAR (CLEAR); COLOR,URINE YELLOW (YELLOW); KETONES,URINE NEGATIVE (NEGATIVE); LEUKOCYTE ESTERASE ,URINE NEGATIVE (NEGATIVE); NITRITE,URINE NEGATIVE (NEGATIVE); PROTEIN,URINE DIPSTICK NEGATIVE (NEGATIVE); URINE UROBILINOGEN 0.2 mg/dL (0.2 - 1)
[2019-06-01 18:54] VITALS: BP 115/75
== END 2019-06-01 19:01 | disposition home or self-care (01) ==
LOC: ER 16:17
DX: R61 Generalized hyperhidrosis (principal); I10 Essential (primary) hypertension; E78.5 Hyperlipidemia, unspecified; Z95.1 Presence of aortocoronary bypass graft
CPT/HCPCS: 36415; 71045; 80053; 81001; 82550; 82553; 83880; 84484; 85025; 85610; 85730; 93005; 99284